=== PATIENT | male | born 1955 | race Caucasian/White ===

== ENCOUNTER 2024-05-13 01:06 | Observation (INO) ==
--- NOTE | 2024-05-13 01:13 | Emergency Department Note ---
Impression & Plan Acute non-ST elevation myocardial infarction (NSTEMI) admit to the [facility] ED Provider Note NAME: TALIB DE LEON AGE: 68 SEX: Male INFORMANT: Patient ED PROVIDER(S): Saab Onofre DO CHIEF COMPLAINT: chest pain PLAN: Disposition: admit to the [facility] MEDICAL DECISION MAKING: This is a 68-year-old male patient with a history of coronary artery disease and 2 stents previously placed 3 years ago who presents to the emergency department with chest discomfort that radiates to both arms and his jaw since earlier this afternoon. patient called EMS. They Administered nitroglycerin to the patient which relieved his chest discomfort. he arrived hemodynamically stable to the emergency department. Laboratory studies revealed no leukocytosis or anemia. Coagulation studies were normal. BUN was elevated 26 but creatinine was normal. Glucose was 109. However, the patient's troponin was elevated to 40.4. This was concerning for NSTEMI. Portable chest x-ray revealed mild pulmonary vascular congestion. The patient was bolused with IV heparin and started on a heparin drip. He remained chest pain-free while here in the emergency department. I discussed the case with the [facility] and they will evaluate for further inpatient care. Care/management discussed with: ready to wear department manager and [facility] Triage Nursing notes: reviewed and agree With them. Vital Signs: reviewed and remarkable for hypertension Prior/ Outside/ External records reviewed: I did look at a previous EKG and a primary care note from April 06. Differential Diagnosis: Aortic dissection, cardiac ischemia, STEMI, NSTEMI, angina Diagnostics, independently interpreted by me: ECG: normal sinus rhythm at a rate of 68 with PVCs. There is no ST segment elevation or signs of ischemia. This is unchanged from EKG on 04/06/2024 Cardiac Monitoring: normal sinus rhythm at a rate of 72 Imaging studies: portable chest x-ray: mild pulmonary vascular congestion As per my independent interpretation. HPI: 68 year old Male arrives for evaluation of Chest discomfort. patient describes developing chest discomfort earlier this afternoon. he became more concerned when the pain began to radiate into both arms and up into his jaw. Around 1030 this evening, he describes a tightness in his chest and a sharp pressure. He took 2 aspirin himself but could not get comfortable. He then developed nausea and called EMS. They Gave him additional 2 aspirin and a dose of nitroglycerin which did relieve the chest discomfort. PAST MEDICAL HISTORY: See Below, PAST SURGICAL HISTORY: See Below, SOCIAL HISTORY: See Below, HOME MEDICATIONS: See list ALLERGIES: none VITALS: See Below PHYSICAL EXAMINATION: HEENT: Head - normocephalic and atraumatic. Pupils are equal, round, and reactive to light. Extraocular eye muscles are intact, and sclera are anicteric. Nose - moist nasal mucosa without discharge. Mouth - moist buccal mucosa. Oropharynx is nonerythematous and there is no tonsillar exudate or edema noted. Neck: Supple; no JVD or cervical lymphadenopathy Heart: Regular rate and rhythm. There is a normal S1 and S2 with no murmurs, clicks, or gallops appreciated. Lungs: Clear to auscultation bilaterally with no wheezes, rales, or rhonchi. Abdomen: Soft, completely nontender, nondistended, with good bowel sounds. There are no palpable pulsatile masses or hepatosplenomegaly. There is no guarding, rigidity, or rebound noted. Extremities: No evidence of cyanosis, clubbing, or edema. There are easily palpable peripheral pulses. Skin: warm and dry with good turgor and no rashes. Emergency Department treatment: quality assurance monitor final, IV heparin bolus, IV heparin drip Emergency Department course: The patient was evaluated in room B-7. A complete history and physical was performed. Twelve-lead EKG was obtained as described above. An order was placed for continuous cardiac monitoring. Patient was in a normal sinus rhythm at a rate of 72. A portable chest x-ray was performed. Laboratory studies were drawn as above. Nursing staff hrme-tested the patient's stool which was negative. I reviewed the results of the labs with the patient. Patient was bolused with IV heparin and started on a heparin drip. I discussed the case with the [facility] Hospitalist. Past Med/Surg History Problem List (Updated 05/13/24 @ 05:28 by Saba Onofre DO) Acute non-ST elevation myocardial infarction (NSTEMI) (Acute) Chest pain CAD (coronary artery disease) Polymyalgia rheumatica on chronic prednisone therapy Bacterial sinusitis PAF (paroxysmal atrial fibrillation) Muscular aches Nocturnal hypoxemia Moderate obstructive sleep apnea Class 1 obesity with serious comorbidity and body mass index (BMI) of 34.0 to 34.9 in adult Snoring Atherosclerotic heart disease of [place] coronary artery with other forms of angina pectoris Atherogenic dyslipidemia Benign essential hypertension Medical History History of inferior wall myocardial infarction Insufficient sleep syndrome Hypersomnia Left shoulder pain Chronic knee pain Class 2 obesity due to excess calories with body mass index (BMI) of 38.0 to 38.9 in adult Abdominal pain COVID Nausea and vomiting after administration of anesthetic agent Surgical History History of heart artery stent History of removal of cyst off back History of arthroscopy of right shoulder History of arthroscopy of right knee x2 History of arthroscopy of left knee x2 History of repair of anterior cruciate ligament of left knee History of colonoscopy History of esophagogastroduodenoscopy (EGD) History of wisdom tooth extraction Status post correction of deviated nasal septum Status post myringotomy with tube placement of both ears Family History Grandmother (Paternal) Family history of diabetes mellitus Other No family history of adverse response to anesthesia Denies family history of Ovarian cancer Prostate cancer Myocardial infarction Breast cancer Colorectal cancer Social History Smoking Status: Never smoker Second Hand Exposure: Yes (father smoked); Do You Dip or Chew Tobacco: No; Hx Alcohol Use: Yes Alcohol type: beer Hx Substance Use: No Preferred Language: Turkmen Communication Ability: Effective Visual Impairment: No Limitations Hearing Ability: Normal Control And Recovery Special Tactics Required: No Beliefs That Will Affect Care: None marital status: Single Current Living Situation: Alone current occupational status: employed current occupation: Researcher Feels Safe at Home: Yes Diet: regular Dental Care, Regularly: Yes Physical Activity Frequency: 1-2 Times per Week Seatbelt Use: sometimes Sunscreen Use: No Assistive Devices: None Allergies Allergies Allergy/AdvReac Type Severity Reaction Status Date / Time No Known Allergies Allergy Verified 05/13/24 02:23 Home Meds Home Medications Medication Instructions Recorded Confirmed ibuprofen 200 mg tablet (Advil) 200 mg PO Q6H PRN Pain 03/06/23 05/13/24 aspirin 81 mg tablet,delayed 81 mg PO DIRECTED 09/25/23 05/13/24 release (Adult Low Dose Aspirin) acetaminophen 500 mg tablet 500 mg PO Q6H PRN Pain 05/13/24 05/13/24 (Tylenol Extra Strength) aspirin 325 mg tablet 325 mg PO DIRECTED PRN Pain 05/13/24 05/13/24 omeprazole 40 mg capsule,delayed 40 mg PO DAILY PRN WHEN TAKES 05/13/24 05/13/24 release PREDNISONE/UPSET STOMACH prednisone 5 mg tablet 15 mg PO DAILY 05/13/24 05/13/24 tirzepatide (weight loss) 15 15 mg subcut WK 05/13/24 05/13/24 mg/0.5 mL subcutaneous pen injector (Zepbound) Results & Data (ED) Vital Signs Vital Signs - 24 hr 05/13/24 00:55 05/13/24 00:55 05/13/24 01:13 Temperature 36.8 C Temperature Source Oral Pulse Rate 71 72 Pulse Rate [Apical] Pulse Rhythm Regular Pulse Rhythm [Apical] Pulse Strength Normal Pulse Strength [Apical] Respiratory Rate 19 Respiratory Effort / Characteristics Non-Labored Spontaneous Respiratory Depth Normal Respiratory Pattern Regular Blood Pressure 133/101 H Blood Pressure [Right Arm] Blood Pressure Mean 111 Blood Pressure Mean [Right Arm] Blood Pressure Position Sitting Blood Pressure Position [Right Arm] Pulse Oximetry 95 91 Oxygen Delivery Method Room Air Room Air Oxygen Flow Rate 0 Sepsis Recent Fever Within 48 Hours No Sepsis New/Unexplained Change in Mental Status N/A Sepsis Action Taken by Nursing No Action Required 05/13/24 01:38 05/13/24 03:00 Temperature Temperature Source Pulse Rate 72 Pulse Rate [Apical] 62 Pulse Rhythm Regular Pulse Rhythm [Apical] Regular Pulse Strength Pulse Strength [Apical] Normal Respiratory Rate 20 20 Respiratory Effort / Characteristics Non-Labored Spontaneous Respiratory Depth Normal Respiratory Pattern Regular Blood Pressure Blood Pressure [Right Arm] 146/106 H Blood Pressure Mean Blood Pressure Mean [Right Arm] 119 Blood Pressure Position Blood Pressure Position [Right Arm] Lying Pulse Oximetry 92 95 Oxygen Delivery Method Room Air Room Air Oxygen Flow Rate Sepsis Recent Fever Within 48 Hours Sepsis New/Unexplained Change in Mental Status Sepsis Action Taken by Nursing Laboratory Data 05/13/24 01:38 05/13/24 03:19 Lab Results 05/13/24 Range/Units 01:38 WBC 10.47 (4.8-10.8) K/ul RBC 5.29 (4.70-6.10) M/uL Hgb 15.4 (14.0-18.0) g/dl Hct 45.5 (42.0-52.0) % MCV 86.0 (80.0-100.0) fL MCH 29.1 (25.0-34.0) pg MCHC 33.8 (32.0-36.0) g/dL RDW Std Deviation 43.7 (36.4-46.3) fL RDW Coeff of [place] 13.9 (11.5-14.5) % Plt Count 226 (130-400) K/uL MPV 10.3 (9.4-12.4) fL Immature Gran % (Auto) 1.1 % Neut % (Auto) 64.9 % Lymph % (Auto) 24.6 % [place] % (Auto) 7.2 % Eos % (Auto) 1.8 % Baso % (Auto) 0.4 % Neut # (Auto) 6.80 H (1.40-6.50) K/uL Lymph # (Auto) 2.58 (1.20-3.40) K/uL [place] # (Auto) 0.75 H (0.11-0.59) K/uL Eos # (Auto) 0.19 (0.00-0.50) K/uL Baso # (Auto) 0.04 (0.00-0.20) K/uL Immature Gran # (Auto) 0.11 (0.01-0.20) K/uL Sodium 138 (136-145) mmol/L Potassium TNP Chloride 106 (98-107) mmol/L Carbon Dioxide 25 (21-32) mmol/L Anion Gap 7 (3-11) BUN 26 H (6-23) mg/dl Creatinine 0.81 (0.6-1.4) mg/dl Est Cr Clr Drug Dosing 110.0 ml/min eGFR 95.44 BUN/Creatinine Ratio 32.1 H (10-20) Glucose 109 H (70-99(Fasting)) mg/dl Calcium 9.3 (8.6-10.3) mg/dl Total Bilirubin 0.4 (0.2-1.0) mg/dl AST TNP ALT 16 (7-52) U/L Alkaline Phosphatase 65 (34-104) U/L Troponin I High Sens 40.4 H (0-20) pg/ml Total Protein 6.7 (6.0-8.3) gm/dl Albumin 4.1 (3.4-5.0) gm/dl Globulin 2.6 (2.5-4.0) gm/dl Albumin/Globulin Ratio 1.6 (0.9-2) Lipase 59 (11-82) U/L Administered Medications Heparin Sodium/Dextrose (Heparin 14107 Unit/500 Ml D5w) 25,000 units in 500 mls @ 33 mls/hr IV .[id number] BELEN; Protocol Stop: 06/12/24 03:29 Last Admin: 05/13/24 04:06 Dose: 1,650 units/hr, 33 mls/hr Documented By: KIARA Co-signed By: ASHOK Discontinued Medications Heparin Sodium (Porcine) (Heparin Sod (Porcine) 1000 Unit/Ml) 1 units IV NOW ONE Stop: 05/13/24 03:20 Last Admin: 05/13/24 04:05 Dose: 7,000 units Documented By: KIARA Co-signed By: ASHOK Heparin Sodium/Dextrose (Heparin Iv Adult Wt-Based Standard W/ Initial Bolus Protocol) 1 each IV NOW STA; Protocol Stop: 05/13/24 03:05 Last Admin: 05/13/24 04:07 Dose: Not Given Documented By: KIARA Imaging Data Radiologist's Impression: Chest X-Ray 05/13/24 01:38 EXAM: XR chest 1V portable CLINICAL HISTORY: Chest pain, nonspecific TECHNIQUE: An X-ray image of the chest is obtained in AP projection. COMPARISON: 12/16/2020 CR. FINDINGS: Pulmonary Parenchyma: Prominent central bronchovascular markings could be due to pulmonary congestion. Linear opacities in the left lower zone, are likely atelectatic. No evidence of pleural effusion or thickening. Heart and Mediastinum: Cardiomegaly. Prominent aortic knuckle. No mediastinal masses. Bony Thorax: Mild degenerative changes of the visualized skeleton. Soft Tissues: Soft tissues overlying the chest wall are unremarkable. Mild apparent soft tissue thickening at the left supraclavicular area could be an external artifact. IMPRESSION: 1. Left lower zone linear opacities could be atelectatic or related to the prominent bronchovascular markings. Clinical correlation is advised. 2. The prominence of perihilar broncho-vascular markings is probably due to pulmonary vascular congestion. (increased). 3. No other significant interval change since the previous study. Electronically signed by Mario Hernandez 05-13-2024 03:04 AM Discharge Plan Visit Data Chief Complaint: Cardiac Assessment Stated Complaint: CHEST PAIN, RADIATES INTO JAW AND NECK ED Provider: Saba Onofre Discharge Problem: Acute non-ST elevation myocardial infarction (NSTEMI) Patient Disposition: Admitted As Inpatient Discharge Instructions Interventions: ED Discharge Assessment Last Done: 05/13/24 04:15
[2024-05-13 01:52] LABS: Basophils # (auto) 0.04 K/uL (0.00-0.20); Basophils % (auto) 0.4 %; Eosinophils # (auto) 0.19 K/uL (0.00-0.50); Eosinophils % (auto) 1.8 %; Hematocrit (blood only) 45.5 % (42.0-52.0); Hemoglobin 15.4 g/dl (14.0-18.0); Immature Granulocytes # (auto) 0.11 K/uL (0.01-0.20); Immature Granulocytes % (auto) 1.1 %; Lymphocytes # (auto) 2.58 K/uL (1.20-3.40); Lymphocytes % (auto) 24.6 %; Mean Corpuscular Hemoglobin 29.1 pg (25.0-34.0); Mean Corpuscular Hgb Conc 33.8 g/dL (32.0-36.0); Mean Platelet Volume 10.3 fL (9.4-12.4); Monocytes # (auto) 0.75 K/uL (0.11-0.59); Monocytes % (auto) 7.2 %; Neutrophils % (auto) 64.9 %; Platelet Count 226 K/uL (130-400); RDW Coefficient of Variation 13.9 % (11.5-14.5); RDW Standard Deviation 43.7 fL (36.4-46.3); Red Blood Count 5.29 M/uL (4.70-6.10); White Blood Count 10.47 K/ul (4.8-10.8)
[2024-05-13 02:32] LABS: Alanine Aminotransferase 16 U/L (7-52); Albumin Globulin Ratio 1.6 (0.9-2); Albumin Level 4.1 gm/dl (3.4-5.0); Alkaline Phosphatase 65 U/L (34-104); Anion Gap 7 (3-11); BUN Creatinine Ratio 32.1 (10-20); Bilirubin,Total 0.4 mg/dl (0.2-1.0); Blood Urea Nitrogen 26 mg/dl (6-23); Calcium 9.3 mg/dl (8.6-10.3); Carbon Dioxide 25 mmol/L (21-32); Chloride 106 mmol/L (98-107); Globulin 2.6 gm/dl (2.5-4.0); Glucose 109 mg/dl (70-99(Fasting)); Lipase 59 U/L (11-82); Sodium 138 mmol/L (136-145); Total Protein 6.7 gm/dl (6.0-8.3); Troponin I High Sensitivity 40.4 pg/ml (0-20)
--- NOTE | 2024-05-13 03:04 | XRay Report ---
EXAM: XR chest 1V portable CLINICAL HISTORY: Chest pain, nonspecific TECHNIQUE: An X-ray image of the chest is obtained in AP projection. COMPARISON: 12/16/2020 CR. FINDINGS: Pulmonary Parenchyma: Prominent central bronchovascular markings could be due to pulmonary congestion. Linear opacities in the left lower zone, are likely atelectatic. No evidence of pleural effusion or thickening. Heart and Mediastinum: Cardiomegaly. Prominent aortic knuckle. No mediastinal masses. Bony Thorax: Mild degenerative changes of the visualized skeleton. Soft Tissues: Soft tissues overlying the chest wall are unremarkable. Mild apparent soft tissue thickening at the left supraclavicular area could be an external artifact. IMPRESSION: 1. Left lower zone linear opacities could be atelectatic or related to the prominent bronchovascular markings. Clinical correlation is advised. 2. The prominence of perihilar broncho-vascular markings is probably due to pulmonary vascular congestion. (increased). 3. No other significant interval change since the previous study. Electronically signed by Mario Hernandez 05-13-2024 03:04 AM
--- NOTE | 2024-05-13 03:13 | History & Physical Report ---
Date of Service May 13, 2024 Assessment & Plan (1) Chest pain: (2) CAD (coronary artery disease): (3) PAF (paroxysmal atrial fibrillation): (4) Polymyalgia rheumatica: (5) Benign essential hypertension: Plan 68yo male with history of CAD s/p VT with stent placement to the LAD in January 2022, PAF and PMR on Prednisone therapy presenting with chest pain ongoing throughout the day with acute worsening around 22:30 today. EKG with no acute ischemic changes. Troponin x 1 was elevated at 40.4 - repeat is pending #Chest pain- concern for possible ACS -Observation to medical with telemetry -Trend troponin -Continue heparin gtt initiated in the ER -Continue ASA - will increase to 81mg po DAILY -Patient does not take a statin or BB at this time -Cardiology consultation appreciated #CAD -Continue ASA -Trend troponin -Cardiology consultation #PAF - patient with low atrial fibrillation burden. Has discussed management with Cardiology including possible Watchman procedure. At this time patient remains off any rate/rhythm controlling agents and off anticoagulation -Telemetry monitoring #PMR - chronic, stable -Continue Predisone at home dose of 15mg po daily #Hypertension - blood pressure controlled at home. Patient is not currently on any medications -Monitor History of Present Illness Chief Complaint: chest pain Primary Care Provider: Ham Hernandez DO Nirmal Waller is a pleasant 68yo male with history of HTN, HLP, PAF, RITA and CAD s/p VT with stent placement to LAD in January 2022 presenting with chest pain. Patient reports having substernal chest discomfort mild in nature throughout the day. Around 22:30 the discomfort became more intense with radiation to bilateral arms a well as his jaw. He had some nausea as well. Denies SOB, palpitations, dizziness or syncope. Patient took ASA x 2 prior to arrival - was given additional ASA and Nitro by EMS which improved his pain. Patient reports now just with some mild discomfort in his jaw. 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 Does not have Nitro at home In the ER patient is afebrile, HD stable Allergies Allergy/AdvReac Type Severity Reaction Status Date / Time No Known Allergies Allergy Verified 05/13/24 02:23 Home Medications Medication Instructions Recorded Confirmed Type ibuprofen 200 mg tablet (Advil) 200 mg PO Q6H PRN Pain 03/06/23 05/13/24 History aspirin 81 mg tablet,delayed 81 mg PO DIRECTED 09/25/23 05/13/24 History release (Adult Low Dose Aspirin) acetaminophen 500 mg tablet 500 mg PO Q6H PRN Pain 05/13/24 05/13/24 History (Tylenol Extra Strength) aspirin 325 mg tablet 325 mg PO DIRECTED PRN Pain 05/13/24 05/13/24 History omeprazole 40 mg capsule,delayed 40 mg PO DAILY PRN WHEN TAKES 05/13/24 05/13/24 History release PREDNISONE/UPSET STOMACH prednisone 5 mg tablet 15 mg PO DAILY 05/13/24 05/13/24 History tirzepatide (weight loss) 15 15 mg subcut WK 05/13/24 05/13/24 History mg/0.5 mL subcutaneous pen injector (Zepbound) Past Med/Surg History Problem List (Updated 05/13/24 @ 03:49 by Tila Franklin DO) Chest pain CAD (coronary artery disease) Polymyalgia rheumatica on chronic prednisone therapy Bacterial sinusitis PAF (paroxysmal atrial fibrillation) Muscular aches Nocturnal hypoxemia Moderate obstructive sleep apnea Class 1 obesity with serious comorbidity and body mass index (BMI) of 34.0 to 34.9 in adult Snoring Atherosclerotic heart disease of [place] coronary artery with other forms of angina pectoris Atherogenic dyslipidemia Benign essential hypertension Medical History History of inferior wall myocardial infarction Insufficient sleep syndrome Hypersomnia Left shoulder pain Chronic knee pain Class 2 obesity due to excess calories with body mass index (BMI) of 38.0 to 38. 9 in adult Abdominal pain COVID Nausea and vomiting after administration of anesthetic agent Surgical History History of heart artery stent History of removal of cyst off back History of arthroscopy of right shoulder History of arthroscopy of right knee x2 History of arthroscopy of left knee x2 History of repair of anterior cruciate ligament of left knee History of colonoscopy History of esophagogastroduodenoscopy (EGD) History of wisdom tooth extraction Status post correction of deviated nasal septum Status post myringotomy with tube placement of both ears Family History Grandmother (Paternal) Family history of diabetes mellitus Other No family history of adverse response to anesthesia Denies family history of Ovarian cancer Prostate cancer Myocardial infarction Breast cancer Colorectal cancer Social History Smoking Status: Never smoker Second Hand Exposure: Yes (father smoked); Do You Dip or Chew Tobacco: No; Hx Alcohol Use: Yes Alcohol type: beer Hx Substance Use: No Preferred Language: Vietnamese Communication Ability: Effective Visual Impairment: No Limitations Hearing Ability: Normal Parts Cataloguer Required: No Beliefs That Will Affect Care: None marital status: Single Current Living Situation: Alone current occupational status: employed current occupation: Researcher Feels Safe at Home: Yes Diet: regular Dental Care, Regularly: Yes Physical Activity Frequency: 1-2 Times per Week Seatbelt Use: sometimes Sunscreen Use: No Assistive Devices: None Review of Systems Review of Systems: All systems reviewed & are unremarkable except as noted in HPI & below Physical Exam Physical Exam: General: patient resting comfortably, NAD, non-toxic in appearance, AA&O x 4 Skin: warm, dry, intact, no rashes or lesions HEENT: NC/AT, PERRL, EOMI, anicteric sclera, conjunctiva without injection, external ear normal to inspection and nontender, nares patent, moist mucus membranes, dentition intact, no oropharyngeal lesions, neck supple, trachea midline, no LAD, no thyromegaly, no JVD Heart: +S1/S2, regular, no m/r/g Lungs: equal air entry bilaterally, no rales/rhonchi/wheezes Abd: +BS, soft, NT/ND, no masses/organomegaly/ascites Ext: warm, 2+ pulses in UE/LE bilaterally, no clubbing/cyanosis or edema Neuro: nonfocal, patient AA&O x 4, speech intact, no facial droop, moving all extremities on command with equal strength 5/5 Results & Data Results & Data Vital Signs (Past 12 Hours) Vital Signs Temp Pulse Pulse Resp BP BP Pulse Ox 05/13/24 03:00 62 20 146/106 H 95 05/13/24 01:38 72 20 92 05/13/24 01:13 72 05/13/24 00:55 91 05/13/24 00:55 36.8 C 71 19 133/101 H 95 O2 Del Method O2 Flow Rate 05/13/24 03:00 Room Air 05/13/24 01:38 Room Air 05/13/24 01:13 05/13/24 00:55 Room Air 0 05/13/24 00:55 Room Air Laboratory Results Laboratory Results WBC 10.47 K/ul (4.8-10.8) 05/13/24 01:38 RBC 5.29 M/uL (4.70-6.10) 05/13/24 01:38 Hgb 15.4 g/dl (14.0-18.0) 05/13/24 01:38 Hct 45.5 % (42.0-52.0) 05/13/24 01:38 MCV 86.0 fL (80.0-100.0) 05/13/24 01:38 MCH 29.1 pg (25.0-34.0) 05/13/24 01:38 MCHC 33.8 g/dL (32.0-36.0) 05/13/24 01:38 RDW Std Deviation 43.7 fL (36.4-46.3) 05/13/24 01:38 RDW Coeff of [place] 13.9 % (11.5-14.5) 05/13/24 01:38 Plt Count 226 K/uL (130-400) 05/13/24 01:38 MPV 10.3 fL (9.4-12.4) 05/13/24 01:38 Immature Gran % (Auto) 1.1 % 05/13/24 01:38 Neut % (Auto) 64.9 % 05/13/24 01:38 Lymph % (Auto) 24.6 % 05/13/24 01:38 [place] % (Auto) 7.2 % 05/13/24 01:38 Eos % (Auto) 1.8 % 05/13/24 01:38 Baso % (Auto) 0.4 % 05/13/24 01:38 Neut # (Auto) 6.80 K/uL (1.40-6.50) H 05/13/24 01:38 Lymph # (Auto) 2.58 K/uL (1.20-3.40) 05/13/24 01:38 [place] # (Auto) 0.75 K/uL (0.11-0.59) H 05/13/24 01:38 Eos # (Auto) 0.19 K/uL (0.00-0.50) 05/13/24 01:38 Baso # (Auto) 0.04 K/uL (0.00-0.20) 05/13/24 01:38 Immature Gran # (Auto) 0.11 K/uL (0.01-0.20) 05/13/24 01:38 Sodium 138 mmol/L (136-145) 05/13/24 01:38 Potassium TNP 05/13/24 01:38 Chloride 106 mmol/L (98-107) 05/13/24 01:38 Carbon Dioxide 25 mmol/L (21-32) 05/13/24 01:38 Anion Gap 7 (3-11) 05/13/24 01:38 BUN 26 mg/dl (6-23) H 05/13/24 01:38 Creatinine 0.81 mg/dl (0.6-1.4) 05/13/24 01:38 Est Cr Clr Drug Dosing 110.0 ml/min 05/13/24 01:38 eGFR 95.44 05/13/24 01:38 BUN/Creatinine Ratio 32.1 (10-20) H 05/13/24 01:38 Glucose 109 mg/dl (70-99(Fasting)) H 05/13/24 01:38 Calcium 9.3 mg/dl (8.6-10.3) 05/13/24 01:38 Total Bilirubin 0.4 mg/dl (0.2-1.0) 05/13/24 01:38 AST TNP 05/13/24 01:38 ALT 16 U/L (7-52) 05/13/24 01:38 Alkaline Phosphatase 65 U/L (34-104) 05/13/24 01:38 Troponin I High Sens 40.4 pg/ml (0-20) H 05/13/24 01:38 Total Protein 6.7 gm/dl (6.0-8.3) 05/13/24 01:38 Albumin 4.1 gm/dl (3.4-5.0) 05/13/24 01:38 Globulin 2.6 gm/dl (2.5-4.0) 05/13/24 01:38 Albumin/Globulin Ratio 1.6 (0.9-2) 05/13/24 01:38 Lipase 59 U/L (11-82) 05/13/24 01:38 Impressions Chest X-Ray 05/13/24 01:38 EXAM: XR chest 1V portable CLINICAL HISTORY: Chest pain, nonspecific TECHNIQUE: An X-ray image of the chest is obtained in AP projection. COMPARISON: 12/16/2020 CR. FINDINGS: Pulmonary Parenchyma: Prominent central bronchovascular markings could be due to pulmonary congestion. Linear opacities in the left lower zone, are likely atelectatic. No evidence of pleural effusion or thickening. Heart and Mediastinum: Cardiomegaly. Prominent aortic knuckle. No mediastinal masses. Bony Thorax: Mild degenerative changes of the visualized skeleton. Soft Tissues: Soft tissues overlying the chest wall are unremarkable. Mild apparent soft tissue thickening at the left supraclavicular area could be an external artifact. IMPRESSION: 1. Left lower zone linear opacities could be atelectatic or related to the prominent bronchovascular markings. Clinical correlation is advised. 2. The prominence of perihilar broncho-vascular markings is probably due to pulmonary vascular congestion. (increased). 3. No other significant interval change since the previous study. Electronically signed by Mario Hernandez 05-13-2024 03:04 AM ECG Additional Comments: EKG with SR at 68bpm with PVCs, no acute ischemic changes PG Care Time/CCT Total # of Minutes Spent Total Time Spent with Patient: Total time spent is greater than 50% in coordination of care (as documented) at patient's floor/unit and/or counseling patient: Coding Level of Care Code 11064 INT INP/OBS CARE 3/75MIN Diagnoses Chest pain R07.9 CAD (coronary artery disease) I25.10 PAF (paroxysmal atrial fibrillation) I48.0 Polymyalgia rheumatica M35.3 Benign essential hypertension I10
[2024-05-13 03:49] LABS: Potassium 4.3 mmol/L (3.5-5.1)
[2024-05-13 03:54] LABS: Troponin I High Sensitivity 31.7 pg/ml (0-20)
[2024-05-13 03:56] LABS: INR 1.1 (0.9-1.1); Partial Thromboplastin Time 26 Seconds (21-31); Prothrombin Time 11.4 Seconds (9.0-12.0)
[2024-05-13] MEDS: HEPARIN SOD (PORCINE) 1000 UNIT/ML IV ONE (04:05)
[2024-05-13] MEDS: HEPARIN 25000 UNIT/500 ML D5W 25,000 UNITS/500 ML BAG IV SCH (04:06)
[2024-05-13] MEDS: Heparin IV Adult Wt-Based Standard w/ INITIAL Bolus Protocol IV STA (04:07)
[2024-05-13] MEDS ORDERED: ACETAMINOPHEN 500 MG TAB PO PRN (04:49)
[2024-05-13] MEDS ORDERED: ONDANSETRON INJ 2 MG/ML 2 ML VIAL IV PRN (04:49)
[2024-05-13 06:28] LABS: Magnesium 2.2 mg/dl (1.7-2.4)
[2024-05-13] MEDS: ASPIRIN 81 MG ECTAB PO SCH (07:47)
--- NOTE | 2024-05-13 07:47 | Hospitalist Progress Note ---
Date of Service May 13, 2024 Assessment & Plan (1) Chest pain: (2) CAD (coronary artery disease): (3) PAF (paroxysmal atrial fibrillation): (4) Polymyalgia rheumatica: (5) Benign essential hypertension: Plan 68yo male with history of CAD s/p [place] with stent placement to the LAD in January 2022, PAF and PMR on Prednisone therapy presenting with chest pain ongoing throughout the day with acute worsening around 22:30 today. EKG with no acute ischemic changes. Troponin x 1 was elevated at 40.4 - repeat is pending Patient took ASA x 2 prior to arrival - was given additional ASA and Nitro by EMS which improved his pain. On admission, patient reported now just with some mild discomfort in his jaw. #Chest pain- concern for possible ACS -Observation to medical with telemetry -Trend troponin -Continue heparin gtt initiated in the ER -Continue ASA - will increase to 81mg po DAILY -Patient does not take a statin or BB at this time -Cardiology consultation appreciated Troponin 31--> 29 on repeat ECHO ordered/pending Cardiology consult pending PCP note 03/05 with patient stoping his statin due to unpleasant side effects Also notes omeprazole rx for hx of stomach bleeding. Hgb stble 15.4 from 15.8 on heparin gtt -->Home meds list with aspirin, prednisone, ibuprofen. ?2nd to reflux. On omeprazole NEEDED, will schedule H2 BID, PPI once daily while NPO BRIDGE NOTE: ADMITTED AFTER MIDNIGHT Seen in 281, no further symptoms. Reports similar symptoms in past with reflux but not as bad but his radiation of symptoms was what was concerning but also thinks has issue w/ bottom right tooth and waiting to get into the dentist. Takes aspirin every other day, rec every day. Also since on steroids, inquired about PPI use and not daily but encouraged should be. As long as ECHO ok, repeat troonin down will plan for dc and f/u cards in 1-[address] Thompson. #CAD -Continue ASA -Trend troponin -Cardiology consultation #PAF - patient with low atrial fibrillation burden. Has discussed management with Cardiology including possible Watchman procedure. At this time patient remains off any rate/rhythm controlling agents and off anticoagulation -Telemetry monitoring Also untx RITA, mag/k stable #PMR - chronic, stable -Continue Predisone at home dose of 15mg po daily #Hypertension - blood pressure controlled at home. Patient is not currently on any medications -Monitor Admission and Anticipated Discharge Date Admission Date: May 13, 2024 Subjective BRIDGE NOTE: ADMITTED AFTER MIDNIGHT Seen in 281, no further symptoms. Reports similar symptoms in past with reflux but not as bad but his radiation of symptoms was what was concerning but also thinks has issue w/ bottom right tooth and waiting to get into the dentist. Takes aspirin every other day, rec every day. Also since on steroids, inquired about PPI use and not daily but encouraged should be. As long as ECHO ok, repeat troonin down will plan for dc and f/u cards in 1-[address] Thompson. Results & Data Results & Data Vital Signs (Past 12 Hours) Vital Signs Temp Pulse Pulse Resp BP BP Pulse Ox 05/13/24 07:27 36.4 C L 68 16 144/87 H 96 05/13/24 06:58 70 05/13/24 04:50 61 05/13/24 04:43 36.4 C L 71 16 143/89 H 93 05/13/24 04:00 71 20 133/84 93 05/13/24 03:00 62 20 146/106 H 95 05/13/24 01:38 72 20 92 05/13/24 01:13 72 05/13/24 00:55 91 05/13/24 00:55 36.8 C 71 19 133/101 H 95 O2 Del Method O2 Flow Rate 05/13/24 07:27 Room Air 05/13/24 06:58 05/13/24 04:50 05/13/24 04:43 Room Air 05/13/24 04:00 Room Air 05/13/24 03:00 Room Air 05/13/24 01:38 Room Air 05/13/24 01:13 05/13/24 00:55 Room Air 0 05/13/24 00:55 Room Air PG Care Time/CCT Total # of Minutes Spent Total Time Spent with Patient: Total time spent is greater than 50% in coordination of care (as documented) at patient's floor/unit and/or counseling patient: Coding Diagnoses Chest pain R07.9 CAD (coronary artery disease) I25.10 PAF (paroxysmal atrial fibrillation) I48.0 Polymyalgia rheumatica M35.3 Benign essential hypertension I10
[2024-05-13] MEDS: predniSONE 5 MG TAB PO SCH (07:48)
[2024-05-13] MEDS: FAMOTIDINE 20MG IV PUSH 20 MG/5 ML SYR IV SCH (10:00)
[2024-05-13] MEDS: PANTOprazole 40 MG/10 ML SYR IV SCH (10:00)
--- NOTE | 2024-05-13 10:55 | Discharge Summary ---
Discharge Summary Date of Service May 13, 2024 Principal Dx & Hospital Course #1 = Principal Diagnosis (1) Chest pain: (2) CAD (coronary artery disease): (3) PAF (paroxysmal atrial fibrillation): (4) Polymyalgia rheumatica: (5) Benign essential hypertension: Plan 68yo male with history of CAD s/p [place] with stent placement to the LAD in January 2022, PAF and PMR on Prednisone therapy presenting with chest pain ongoing throu ghout the day with acute worsening around 22:30. EKG with no acute ischemic changes however initial troponin elevated to 40.4. Reported similar symptoms in past with reflux but not as bad but his radiation of symptoms was what was concerning but also thinks has issue w/ bottom right tooth and waiting to get into the dentist. Patient took ASA 81mg x 2 prior to arrival and was given additional ASA and Nitro by EMS which improved pain and on admission just had some mild discomfort of the jaw. Placed on heparin gtt and telemetry monitoring with NSR w/ PACs. No further CP and was given PPI/H2 as with recent PMR/prednisone use and aspirin suspect underlying reflux (he endorsed issues with this as well and was not taking PPI daily) Troponin trended down 40.4--> 31.7--> 29--> 22.3 Cardiology consulted, discussed with Dr Thompson. ECHO without change to EF/wma, unlikely ACS. Did note now mild-mod MR/TR but EF 55-60%. Per Dr Tolentino, can discharge and f/u with him in 1-3 weeks outpatient. Discussed with patient his statin use as prior intolerance reported but since starting prednisone for his PMR has been taking q2-3 days and rec to increase for prevention. Also rec to increase aspirin to daily and to continue his PPI with omeprazole DAILY SCHEDULED. Patient anxious for discharge and was able to be arranged. Encourage low salt diet, BP monitoring and close follow up with PCP and cardiology at discharge. Warning signs to return were discussed #CAD s/p PCI in the past and aspirin as above rec to continue once daily along with increased compliance with statin therapy. Cardiology consulted/discussed and ECHO w/o wma and remained NSR on telemetry with stable K/Mag #PAF - patient with low atrial fibrillation burden. Has discussed management with [facility] rdiology including possible Watchman procedure. At this time patient remains off any rate/rhythm controlling agents and off anticoagulation - Rec f/u discussion about tx RITA. Mag/K stable and no afib on monitor. Daily ASA at dc rec #PMR - chronic, stable -Continue Prednisone at home dose of 15mg po daily which takes 5mg TID and was adjusted. Rec to f/u discussion PCP and titrate to lowest effective dose #Hypertension - blood pressure controlled at home. Patient is not currently on any medications and stable in hospital setting but should monitor at home. Low salt diet encouraged Notes For Next Care Provider Rec daily aspirin Rec having PPI once daily SCHEDULED, consider BID if needed for ongoing steroid/aspirin use F/u Cards 1-3 weeks Monitor BP in follow up and consider restarting HTN medication if elevated Patient has been taking statin q2-3 days and rec increasing as tolerating w/ improvement in sx since being on prednisone for PMR -- monitor to decrease dosing as able in f/u to prevent worsening reflux sxs Consider holter monitor vs referral for watchman procedure as discussed with cardiology in the past given his LA dilation. Medication Changes From Visit Aspirin to every day PPI to every day Statin increased to daily vs q2d recommended Admission HPI Per Admitting Provider Nirmal Waller is a pleasant 68yo male with history of HTN, HLP, PAF, RITA and CAD s/p [place] with stent placement to LAD in January 2022 presenting with chest pain. Patient reports having substernal chest discomfort mild in nature throughout the day. Around 22:30 the discomfort became more intense with radiation to bilateral arms a well as his jaw. He had some nausea as well. Denies SOB, palpitations, dizziness or syncope. Patient took ASA x 2 prior to arrival - was given additional ASA and Nitro by EMS which improved his pain. Patient reports now just with some mild discomfort in his jaw. 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 Does not have Nitro at home In the ER patient is afebrile, HD stable Admission Exam Per Admitting Provider General: patient resting comfortably, NAD, non-toxic in appearance, AA&O x 4 Skin: warm, dry, intact, no rashes or lesions HEENT: NC/AT, PERRL, EOMI, anicteric sclera, conjunctiva without injection, external ear normal to inspection and nontender, nares patent, moist mucus membranes, dentition intact, no oropharyngeal lesions, neck supple, trachea midline, no LAD, no thyromegaly, no JVD Heart: +S1/S2, regular, no m/r/g Lungs: equal air entry bilaterally, no rales/rhonchi/wheezes Abd: +BS, soft, NT/ND, no masses/organomegaly/ascites Ext: warm, 2+ pulses in UE/LE bilaterally, no clubbing/cyanosis or edema Neuro: nonfocal, patient AA&O x 4, speech intact, no facial droop, moving all extremities on command with equal strength 5/5 Discharge Exam General: 68 yo male sitting up in bed, NAD, anxious for discharge Heent; head atraumatic, +facial hair, +thick neck, mmm Resp: even/unlabored, no wheezing/rales, on room air CV: NSR on telemetry, faint systolic murmur but no pitting edema or calf tenderness GI: +BS, soft/NT MSK/Neuro: nonfocal, moves all extremities, not confused, answering questions appropriately Psych: AOx3, cooperative with exam Discharge Plan Discharge Items Patient Disposition: Home - Self-Care Reason For Visit: CHEST PAIN Discharge Diagnosis: Chest pain, possible reflux Goals: You have been hospitalized for an acute medical problem. During your stay at [facility], we have made an effort to correct the problem that brought you to the hospital while keeping you as comfortable as possible. Medications were used to bring your condition under control and your discharge instructions will include directions for any medications you should take after leaving the hospital. Please make sure you see your Primary Care Provider as part of your follow up plan. Activity: As commented below Non-emergency contact: Primary Care Provider and Attendance Clerk Call non-emergency contact if: you have any medication questions, your symptoms worsen, your pain is not controlled, your pain is unusual for you and you have a fever Follow-up/Referrals: Fuad Thompson MD, PhD [Physician] - 05/20/24 1:00 pm () Ham Hernandez DO [Primary Care Provider] - 05/19/24 1:00 pm Diet: Heart Healthy Addtl Attending Provider Instructions: You have been hospitalized for chest pain. Troponin was minimally elevated and decreased on repeat testing and almost completely normalized. ECHO (ultrasound of the heart) was read by Dr Thompson and pumping function has not changed and no wall motion abnormalities to suggest cardiac etiology. As discussed, would recommend taking your OMEPRAZOLE EVERY day as well as your aspirin and increase your statin for cholesterol as able. Please follow up with Dr Thompson in 1-3 weeks as discussed. Should discuss with Dr Hernandez/primary care about decreasing prednisone dosing in follow up to lowest effective dose to prevent worsening reflux. Return to ER with any increased chest pain, shortness of breath or for any other symptoms concerning for you. Please follow up primary care in 7-10 days. It has been a pleasure being a part of the medical team providing for you while you have been in the hospital. Take care! Pending Studies at Discharge: No Stand-Alone Forms: My [facility] [place], Smoking Cessation Medications and DC Order Prescriptions: Continued ibuprofen [Advil] 200 mg tablet 200 mg PO Q6H PRN (Reason: Pain) aspirin 325 mg Tablet 325 mg PO DIRECTED PRN (Reason: Pain) acetaminophen [Tylenol Extra Strength] 500 mg Tablet 500 mg PO Q6H PRN (Reason: Pain) prednisone 5 mg tablet 15 mg PO DAILY Zepbound 15 mg/0.5 mL pen injector 15 mg subcut WK Rx Instructions: TUESDAYS omeprazole 40 mg capsule,delayed release(DR/EC) 40 mg PO DAILY Qty: 0 0RF Rx Instructions: take 30 minutes prior to food once a day while on Prednisone Changed aspirin [Adult Low Dose Aspirin] 81 mg tablet,delayed release (DR/EC) 81 mg PO DAILY Qty: 0 0RF Rx Instructions: PER PT "WHEN I NEED IT". Discharge Orders: Discharge Order (Routine); Ordered 05/13/24 Ordered By: Maryann Duran Admission Data Admit Date/Time: 05/13/24 03:13 Attending Provider: Musa Esquivel Admit Provider: Tila Franklin Primary Care Provider: Ham Hernandez Other Providers: Desi Musa; Tila Franklin Other Interventions: Discharge Summary Assessment (RN) Last Done: 05/13/24 11:09 Hospital Stay Data Consultations 05/13/24 03:13 ED Decision to Admit Stat 05/13/24 03:13 Consult Cardiology Routine Diagnostic Imagining Performed Chest X-Ray 05/13/24 01:38 EXAM: XR chest 1V portable CLINICAL HISTORY: Chest pain, nonspecific TECHNIQUE: An X-ray image of the chest is obtained in AP projection. COMPARISON: 12/16/2020 CR. FINDINGS: Pulmonary Parenchyma: Prominent central bronchovascular markings could be due to pulmonary congestion. Linear opacities in the left lower zone, are likely atelectatic. No evidence of pleural effusion or thickening. Heart and Mediastinum: Cardiomegaly. Prominent aortic knuckle. No mediastinal masses. Bony Thorax: Mild degenerative changes of the visualized skeleton. Soft Tissues: Soft tissues overlying the chest wall are unremarkable. Mild apparent soft tissue thickening at the left supraclavicular area could be an external artifact. IMPRESSION: 1. Left lower zone linear opacities could be atelectatic or related to the prominent bronchovascular markings. Clinical correlation is advised. 2. The prominence of perihilar broncho-vascular markings is probably due to pulmonary vascular congestion. (increased). 3. No other significant interval change since the previous study. Electronically signed by Mario Hernandez 05-13-2024 03:04 AM ECHOCARDIOGRAM Compared to prior study, changes are noted. The study was technically adequate. Compared to prior study there is now visualized mild-moderate MR and TR. The left atrium now is severely dilated. Normal LV size and systolic function. Mild LVH. Normal RV size and function. Discharge Instructions Given to Patient (Per Discharging Provider) You have been hospitalized for chest pain. Troponin was minimally elevated and decreased on repeat testing and almost completely normalized. ECHO (ultrasound of the heart) was read by Dr Thompson and pumping function has not changed and no wall motion abnormalities to suggest cardiac etiology. As discussed, would recommend taking your OMEPRAZOLE EVERY day as well as your aspirin and increase your statin for cholesterol as able. Please follow up with Dr Thompson in 1-3 weeks as discussed. Should discuss with Dr Hernandez/primary care about decreasing prednisone dosing in follow up to lowest effective dose to prevent worsening reflux. Return to ER with any increased chest pain, shortness of breath or for any other symptoms concerning for you. Please follow up primary care in 7-10 days. It has been a pleasure being a part of the medical team providing for you while you have been in the hospital. Take care! Supervising Physician Co-Signing Physician Notes The patient was not seen by me. The chart was reviewed. Case discussed with CHRISTY Grimaldo. Agree with assessment and plan Total Time Total Time Spent Total Time Spent (In Minutes): 45 Coding Level of Care Code 78545 INP/OBS DISCH >30 MIN Diagnoses Chest pain R07.9 CAD (coronary artery disease) I25.10 PAF (paroxysmal atrial fibrillation) I48.0 Polymyalgia rheumatica M35.3 Benign essential hypertension I10
[2024-05-13 11:01] VITALS: PULSE 74; RESP 14; TEMP 97.3; O2SAT 97
--- NOTE | 2024-05-13 11:02 | XCELERA ---
[id number]
[2024-05-13 11:24] LABS: ANTI-Xa, UFH(UnfractionatedHep 0.82 IU/ml (0.3-0.7)
[2024-05-13 12:04] VITALS: BP 148/90
[2024-05-13] MEDS ORDERED: predniSONE 5 MG TAB PO SCH (14:00)
--- NOTE | 2024-05-13 14:52 | Electrocardiogram Report ---
Test Reason : Blood Pressure : */* mmHG Vent. Rate : 68 BPM Atrial Rate : 68 BPM P-R Int : 168 ms QRS Dur : 86 ms QT Int : 356 ms P-R-T Axes : 34 20 165 degrees QTcB Int : 378 ms Sinus rhythm with occasional Premature ventricular complexes Abnormal ECG When compared with ECG of 28-Mar-2022 17:52, Premature ventricular complexes are now Present Non-specific change in ST segment in Inferior leads T wave inversion less evident in Inferior leads Confirmed by Henry Lares ([id number]) on 05/13/2024 2:51:42 PM Referred By: REFERRED SELF Confirmed By: Henry Lares
== END 2024-05-13 13:35 | disposition home or self-care (01) ==
LOC: ED 01:06 → 2N 01:06 → SUATTDRO 03:13 → 2N 04:15
DX: Z95.5 Presence of coronary angioplasty implant and graft; M35.3 Polymyalgia rheumatica; G47.33 Obstructive sleep apnea (adult) (pediatric); Z79.899 Other long term (current) drug therapy; I25.10 Atherosclerotic heart disease of native coronary artery without angina pectoris; Z79.85 Long-term (current) use of injectable non-insulin antidiabetic drugs; Z79.52 Long term (current) use of systemic steroids; R07.9 Chest pain, unspecified; I25.2 Old myocardial infarction; I48.0 Paroxysmal atrial fibrillation; I10 Essential (primary) hypertension; Z79.82 Long term (current) use of aspirin

== ENCOUNTER 2024-05-15 21:25 | Inpatient (IN) ==
[2024-05-15 21:51] LABS: Basophils # (auto) 0.03 K/uL (0.00-0.20); Basophils % (auto) 0.3 %; Hematocrit (blood only) 44.6 % (42.0-52.0); Hemoglobin 15.1 g/dl (14.0-18.0); Lymphocytes # (auto) 1.86 K/uL (1.20-3.40); Lymphocytes % (auto) 18.6 %; Mean Corpuscular Hemoglobin 29.2 pg (25.0-34.0); Mean Corpuscular Hgb Conc 33.9 g/dL (32.0-36.0); Mean Corpuscular Volume 86.3 fL (80.0-100.0); Mean Platelet Volume 9.8 fL (9.4-12.4); Monocytes # (auto) 0.79 K/uL (0.11-0.59); Monocytes % (auto) 7.9 %; Neutrophils # (auto) 7.13 K/uL (1.40-6.50); Neutrophils % (auto) 71.2 %; Platelet Count 218 K/uL (130-400); RDW Coefficient of Variation 13.7 % (11.5-14.5); RDW Standard Deviation 43.6 fL (36.4-46.3); Red Blood Count 5.17 M/uL (4.70-6.10); White Blood Count 10.01 K/ul (4.8-10.8)
[2024-05-15 22:07] LABS: Albumin Globulin Ratio 1.7 (0.9-2); Albumin Level 3.8 gm/dl (3.4-5.0); BUN Creatinine Ratio 37.3 (10-20); Bilirubin,Total 0.4 mg/dl (0.2-1.0); Calcium 8.8 mg/dl (8.6-10.3); Creatinine Clr Calc Pharmacy 120.4 ml/min; Globulin 2.3 gm/dl (2.5-4.0); Total Protein 6.1 gm/dl (6.0-8.3)
[2024-05-15 22:20] LABS: Troponin I High Sensitivity 233.8 pg/ml (0-20)
--- NOTE | 2024-05-15 22:23 | Emergency Department Note ---
ED Provider Note CHIEF COMPLAINT: Chest pain HISTORY OF PRESENTING ILLNESS: This 68-year-old male patient presents emergency department via EMS for evaluation of severe midsternal chest pain that started 1 hour prior to EMS arrival. The pain is radiating into his neck and bilateral arms. His initial blood pressure was 202/136 for EMS. The patient got 2 nitro in the ambulance and his blood pressure improved to 138/91. His pain also improved from 10 out of 10 to 2 out of 10. The patient did take 4 baby aspirin prior to arrival. The patient was sleeping when the pain started. He states he was unable to get up due to the pain. The patient was seen on 05/12/2024 for similar symptoms, but worse tonight. The patient was admitted at that time with a normal echo. He states that they thought his symptoms were secondary to the prednisone and acid reflux. The patient has a history of an LA in January 2022. REVIEW OF SYSTEMS: See HPI for pertinent positives and pertinent negatives. ALLERGIES: [] MEDICATIONS: [] PAST MEDICAL HISTORY: [] PHYSICAL EXAM: [] DIFFERENTIAL DIAGNOSIS: [] ED COURSE AND MEDICAL DECISION MAKING: HISTORY FROM INDEPENDENT HISTORIAN: [] MEDICATIONS GIVEN: [] MONITOR: Continuous cardiac care nurse: Order was placed for continuous cardiac care nurse. Patient was placed on the cardiac care nurse and continuous pulse ox. Patient was noted to be in normal sinus rhythm at an initial rate of [] bpm per my interpretation. EKG: EKG was interpreted by myself as []. INTERPRETATION OF LABS: I interpreted the labs with full lab results as below in the lab section of this note. Laboratory results pertinent to the emergent complaint are discussed in the MDM section below. The patient was advised to follow up with their PCP and/or specialist(s) for further outpatient monitoring and management of any abnormal results. INTERPRETATION OF IMAGING: Imaging studies were interpreted by myself and read by radiology as per the imaging section of this note. The patient was advised to follow up with their PCP and/or specialist(s) for further outpatient management of any non-emergent abnormal findings. [] EXTERNAL RECORDS REVIEWED: [] CHRONIC MEDICAL/SOCIAL CONDITIONS AFFECTING CARE: [] ESCALATION OF CARE CONSIDERED: [] CONSULTATIONS: [] PROCEDURES: [] SPLINTING: Definitive fracture care was performed by myself. The patient was placed in [] under my direction. Neurovascular status was rechecked and intact. MDM SUMMARY: I examined the patient. An IV lock was placed and labs were drawn. []. The patient is to have close outpatient follow-up with a recheck of their symptoms. To return to the ER sooner for any significantly changing or worsening symptoms. The [] educated on the treatment plan and the discharge instructions. The patient was discharged home in stable condition []. DIAGNOSIS: [] TREATMENT PLAN/DISCHARGE INSTRUCTIONS: [] You have been examined and treated today on an emergency basis only. Your workup in the ER did not reveal the need for further emergency workup/treatment or admission at this time. However, this ER visit is not a substitute for, or an effort to provide, complete comprehensive medical care. It is impossible to recognize and treat all injuries or illnesses in a single emergency department visit. It is therefore important that you follow up closely with your family doctor and/or your specialist(s) if applicable for further outpatient evaluation and treatment. It is also important that you follow-up with your family doctor and/or your specialist(s) for further monitoring and outpatient management of any abnormalities seen on your laboratory studies and/or imaging. Call your family doctor and/or specialist(s) as soon as possible to schedule an appointment for follow up from your emergency department visit. Past Med/Surg History Problem List (Updated 05/13/24 @ 05:28 by Saba Onofre DO) Acute non-ST elevation myocardial infarction (NSTEMI) (Acute) Chest pain CAD (coronary artery disease) Polymyalgia rheumatica on chronic prednisone therapy Bacterial sinusitis PAF (paroxysmal atrial fibrillation) Muscular aches Nocturnal hypoxemia Moderate obstructive sleep apnea Class 1 obesity with serious comorbidity and body mass index (BMI) of 34.0 to 34.9 in adult Snoring Atherosclerotic heart disease of [place] coronary artery with other forms of angina pectoris Atherogenic dyslipidemia Benign essential hypertension Medical History History of inferior wall myocardial infarction Insufficient sleep syndrome Hypersomnia Left shoulder pain Chronic knee pain Class 2 obesity due to excess calories with body mass index (BMI) of 38.0 to 38.9 in adult Abdominal pain COVID Nausea and vomiting after administration of anesthetic agent Surgical History History of heart artery stent History of removal of cyst off back History of arthroscopy of right shoulder History of arthroscopy of right knee x2 History of arthroscopy of left knee x2 History of repair of anterior cruciate ligament of left knee History of colonoscopy History of esophagogastroduodenoscopy (EGD) History of wisdom tooth extraction Status post correction of deviated nasal septum Status post myringotomy with tube placement of both ears Family History Grandmother (Paternal) Family history of diabetes mellitus Other No family history of adverse response to anesthesia Denies family history of Ovarian cancer Prostate cancer Myocardial infarction Breast cancer Colorectal cancer Social History Smoking Status: Never smoker Second Hand Exposure: No; Do You Dip or Chew Tobacco: No; Hx Alcohol Use: Yes Alcohol type: beer Hx Substance Use: No Preferred Language: Upper Sorbian Communication Ability: Effective Visual Impairment: No Limitations Hearing Ability: Normal Tick Eradicator Required: No Beliefs That Will Affect Care: None marital status: Single Current Living Situation: Alone current occupational status: employed current occupation: Researcher Feels Safe at Home: Yes Diet: regular Dental Care, Regularly: Yes Physical Activity Frequency: 1-2 Times per Week Seatbelt Use: sometimes Sunscreen Use: No Assistive Devices: Glasses Allergies Allergies Allergy/AdvReac Type Severity Reaction Status Date / Time No Known Allergies Allergy Verified 05/13/24 02:23 Home Meds Home Medications Medication Instructions Recorded Confirmed ibuprofen 200 mg tablet (Advil) 200 mg PO Q6H PRN Pain 03/06/23 05/15/24 acetaminophen 500 mg tablet 500 mg PO Q6H PRN Pain 05/13/24 05/15/24 (Tylenol Extra Strength) aspirin 325 mg tablet 325 mg PO DIRECTED PRN Pain 05/13/24 05/15/24 prednisone 5 mg tablet 15 mg PO DAILY 05/13/24 05/15/24 tirzepatide (weight loss) 15 15 mg subcut WK 05/13/24 05/15/24 mg/0.5 mL subcutaneous pen injector (Zepbound) Previous Rx's Medication Instructions Recorded aspirin 81 mg tablet,delayed 81 mg PO DAILY #0 tabs 05/13/24 release (Adult Low Dose Aspirin) omeprazole 40 mg capsule,delayed 40 mg PO DAILY WHEN TAKES 05/13/24 release PREDNISONE/UPSET STOMACH #0 caps Results & Data (ED) Vital Signs Vital Signs - 24 hr 05/15/24 21:26 05/15/24 21:29 05/15/24 21:34 Temperature 37.4 C Temperature Source Oral Pulse Rate 65 64 Pulse Rate [Apical] Pulse Rhythm [Apical] Respiratory Rate 15 Respiratory Depth Normal Blood Pressure 125/73 Blood Pressure [Right Arm] Blood Pressure Mean 90 Blood Pressure Mean [Right Arm] Pulse Oximetry 95 96 Oxygen Delivery Method Room Air Nasal Cannula Oxygen Flow Rate 2 Sepsis Recent Fever Within 48 Hours No Sepsis New/Unexplained Change in Mental Status No Sepsis Action Taken by Nursing No Action Required 05/15/24 21:35 Temperature Temperature Source Pulse Rate Pulse Rate [Apical] 72 Pulse Rhythm [Apical] Regular Respiratory Rate 20 Respiratory Depth Normal Blood Pressure Blood Pressure [Right Arm] 125/73 Blood Pressure Mean Blood Pressure Mean [Right Arm] 90 Pulse Oximetry 96 Oxygen Delivery Method Oxygen Flow Rate Sepsis Recent Fever Within 48 Hours Sepsis New/Unexplained Change in Mental Status Sepsis Action Taken by Nursing Laboratory Data 05/15/24 21:34 05/15/24 21:34 Lab Results 05/15/24 Range/Units 21:34 WBC 10.01 (4.8-10.8) K/ul RBC 5.17 (4.70-6.10) M/uL Hgb 15.1 (14.0-18.0) g/dl Hct 44.6 (42.0-52.0) % MCV 86.3 (80.0-100.0) fL MCH 29.2 (25.0-34.0) pg MCHC 33.9 (32.0-36.0) g/dL RDW Std Deviation 43.6 (36.4-46.3) fL RDW Coeff of [place] 13.7 (11.5-14.5) % Plt Count 218 (130-400) K/uL MPV 9.8 (9.4-12.4) fL Immature Gran % (Auto) 1.0 % Neut % (Auto) 71.2 % Lymph % (Auto) 18.6 % Nance % (Auto) 7.9 % Eos % (Auto) 1.0 % Baso % (Auto) 0.3 % Neut # (Auto) 7.13 H (1.40-6.50) K/uL Lymph # (Auto) 1.86 (1.20-3.40) K/uL Nance # (Auto) 0.79 H (0.11-0.59) K/uL Eos # (Auto) 0.10 (0.00-0.50) K/uL Baso # (Auto) 0.03 (0.00-0.20) K/uL Immature Gran # (Auto) 0.10 (0.01-0.20) K/uL Sodium 139 (136-145) mmol/L Potassium 4.0 (3.5-5.1) mmol/L Chloride 109 H (98-107) mmol/L Carbon Dioxide 26 (21-32) mmol/L Anion Gap 4 (3-11) BUN 28 H (6-23) mg/dl Creatinine 0.75 (0.6-1.4) mg/dl Est Cr Clr Drug Dosing 120.4 ml/min eGFR 97.69 BUN/Creatinine Ratio 37.3 H (10-20) Glucose 91 (70-99(Fasting)) mg/dl Calcium 8.8 (8.6-10.3) mg/dl Total Bilirubin 0.4 (0.2-1.0) mg/dl AST 14 (13-39) U/L ALT 14 (7-52) U/L Alkaline Phosphatase 64 (34-104) U/L Total Protein 6.1 (6.0-8.3) gm/dl Albumin 3.8 (3.4-5.0) gm/dl Globulin 2.3 L (2.5-4.0) gm/dl Albumin/Globulin Ratio 1.7 (0.9-2) Lipase 34 (11-82) U/L Discharge Plan Visit Data Chief Complaint: Chest Pain Stated Complaint: Chest Pain ED Provider: Radu Mustafa ED Midlevel Provider: Elli Bland Forms Stand Alone Forms: My [facility] Prescriptions Prescriptions: No Action ibuprofen [Advil] 200 mg tablet 200 mg PO Q6H PRN (Reason: Pain) aspirin 325 mg Tablet 325 mg PO DIRECTED PRN (Reason: Pain) acetaminophen [Tylenol Extra Strength] 500 mg Tablet 500 mg PO Q6H PRN (Reason: Pain) prednisone 5 mg tablet 15 mg PO DAILY Zepbound 15 mg/0.5 mL pen injector 15 mg subcut WK Rx Instructions: TUESDAYS omeprazole 40 mg capsule,delayed release(DR/EC) 40 mg PO DAILY Qty: 0 0RF Rx Instructions: take 30 minutes prior to food once a day while on Prednisone aspirin [Adult Low Dose Aspirin] 81 mg tablet,delayed release (DR/EC) 81 mg PO DAILY Qty: 0 0RF Rx Instructions: PER PT "WHEN I NEED IT". Referrals Referrals: Ham Hernandez, [Primary Care Provider] -
[2024-05-15] MEDS: OPTIRAY 320 125ml IV ONE (22:50)
[2024-05-15] MEDS: NITROGLYCERIN 2% OINTMENT 30GM TUBE EXT ONE (23:13)
--- NOTE | 2024-05-15 23:27 | XRay Report ---
Exam(s): XR CXR 1 VIEW EXAM: XR Chest, 1 View CLINICAL HISTORY: Chest pain, nonspecific. TECHNIQUE: Frontal view of the chest. COMPARISON: Portable chest single view 05/13/2024 FINDINGS: Lungs: Similar curvilinear changes in the peripheral left lung base. No focal airspace consolidation. The pulmonary vasculature is unremarkable. Pleural space: Unremarkable. No pneumothorax. No large pleural effusion. Heart: The cardiac silhouette is within normal limits, accounting for portable technique. Mediastinum: The mediastinal contours are stable, accounting for slight lordotic technique. No tracheal deviation. Bones/joints: Unremarkable. No acute fracture. IMPRESSION: No acute cardiopulmonary process identified. The previously questioned pulmonary vascular congestion pattern has resolved with slight improved lung expansion, consistent with previous pulmonary vascular crowding. Electronically signed by: Dawit Mays MD 05/15/24 23:26 PM
--- NOTE | 2024-05-15 23:34 | CT Scan Report ---
Exam(s): CTA ABDOMEN + PELVIS With Contrast IV Amt: 118 ml optiray 320 EXAM: CT Angiography Abdomen and Pelvis With Intravenous Contrast CLINICAL HISTORY: Evaluate for potential dissection. TECHNIQUE: Axial computed tomographic angiography images of the abdomen and pelvis with intravenous contrast. CTDI is 27.54 mGy and DLP is 2958.66 mGy-cm. Automated exposure control was utilized for the study. A dose lowering technique was utilized adhering to the principles of ALARA. MIP reconstructed images were created and reviewed. CONTRAST: Patient received 118 ml optiray 320 of IV contrast COMPARISON: No relevant prior studies available. FINDINGS: VASCULATURE: Aorta: No abdominal aortic aneurysm or dissection. No acute periaortic abnormality identified. No precontrast imaging performed. Celiac trunk and mesenteric arteries: No acute findings. No occlusion or significant stenosis. Renal arteries: No acute findings. No occlusion or significant stenosis. Iliac arteries: No acute findings. No occlusion or significant stenosis. Lung bases: Unremarkable. No mass. No consolidation. ABDOMEN: Liver: Hepatic steatosis. Gallbladder and bile ducts: Unremarkable. No calcified stones. No ductal dilation. Pancreas: Unremarkable. No ductal dilation. No mass. Spleen: Heterogeneous enhancement of the spleen is within normal limits given early arterial phase imaging. Adrenals: Unremarkable. No mass. Kidneys and ureters: Unremarkable. No hydronephrosis. No solid mass. Stomach and bowel: The stomach is moderately distended with retained oral contents. No gastric mucosal thickening. No evidence for focal bowel obstruction. Fecal appearing material in nondilated small bowel loops in the right lower quadrant is noted. Mild to moderate stool burden. No appreciable diverticulitis. PELVIS: Appendix: No findings to suggest acute appendicitis. Bladder: Unremarkable. No mass. Reproductive: Unremarkable as visualized. ABDOMEN and PELVIS: Intraperitoneal space: Unremarkable. No significant fluid collection. No free air. Bones/joints: Laminectomy defects from L4-L5. No acute osseous abnormality. No dislocation. Soft tissues: Unremarkable. Lymph nodes: Unremarkable. No enlarged lymph nodes. IMPRESSION: 1. No abdominal aortic aneurysm or dissection. 2. No evidence for focal bowel obstruction. Fecal appearing material in nondilated small bowel loops in the right lower quadrant is nonspecific in appearance and may represent normal variation or enteritis with delayed transit through the small bowel. Mild to moderate stool burden. No appreciable diverticulitis. No free intraperitoneal fluid or pneumoperitoneum. Incidental normal caliber appendix. Electronically signed by: Dawit Mays MD 05/15/24 23:33 PM
--- NOTE | 2024-05-15 23:42 | CT Scan Report ---
Exam(s): CTA CHEST W/WO Contrast IV Amt: 118 ml optiray 320 EXAM: CT Angiography Chest Without and With Intravenous Contrast CLINICAL HISTORY: Evaluate for potential dissection. TECHNIQUE: Axial computed tomographic angiography images of the chest without and with intravenous contrast using aortic dissection protocol. CTDI is 27. 54 mGy and DLP is 2958 mGy-cm. Automated exposure control was utilized for the study. A dose lowering technique was utilized adhering to the principles of ALARA. MIP reconstructed images were created and reviewed. CONTRAST: Patient received 118 ml optiray 320 of IV contrast COMPARISON: No relevant prior studies available. FINDINGS: Aorta: The ascending aorta is ectatic, with the mid ascending aorta measuring 3.8 x 3.6 cm. The aortic arch and descending aorta are normal in caliber. No dissection or intimal wall abnormality identified on precontrast imaging. No acute periaortic abnormality. Great vessels of aortic arch: No acute findings. No dissection. No arterial occlusion or significant stenosis. Lungs: Dependent curvilinear and ground-glass changes in the posterior aspect of both lungs. No focal airspace consolidation. No mass. Pleural space: Unremarkable. No significant effusion. No pneumothorax. Heart: Cardiac chambers are mildly prominent. At least moderate coronary artery calcification noted in the circumflex and right mid RCA segments. No pericardial effusion. Bones/joints: No acute osseous abnormality. Chronic anterior wedging noted from T8-T11 levels, resulting in accentuated kyphosis. No dislocation. Soft tissues: Unremarkable. Lymph nodes: Unremarkable. No enlarged lymph nodes. IMPRESSION: 1. The ascending aorta is ectatic, with the mid ascending aorta measuring 3.8 x 3.6 cm. The aortic arch and descending aorta are normal in caliber. No dissection or intimal wall abnormality identified on precontrast imaging. No acute periaortic abnormality. 2. Dependent curvilinear and ground-glass presumed atelectatic changes in the posterior aspect of both lungs. No focal airspace consolidation. No pleural effusion or pneumothorax. Electronically signed by: Dawit Mays MD 05/15/24 23:41 PM
--- NOTE | 2024-05-16 00:44 | Emergency Department Note ---
History of Present Illness General Chief Complaint: Chest Pain Stated Complaint: Chest Pain Time Seen by Provider: 05/15/24 22:19 History of Present Illness Provider Complaint: chest pain Onset (ago): hour(s) 2 Duration: improved Pain Location: substernal Pain Radiation: jaw/teeth Maximum Pain Intensity: 2 Current Pain Intensity: 10 Quality: + heaviness (Pressure) Relieved By: + nitroglycerin Exacerbated By: + nothing Context: no recent illness, no recent surgery, no recent immobilization, no recent travel, no trauma/injury, no new medications or no history of DVT/PE Associated symptoms: + dyspnea; no nausea, no vomiting, no diaphoresis, no syncope, no palpitations, no fever or no cough Treatments prior to arrival: aspirin and nitroglycerin (2 sublingual) Home Medications Medication Instructions Recorded Confirmed Type ibuprofen 200 mg tablet (Advil) 200 mg PO Q6H PRN Pain 03/06/23 05/16/24 History acetaminophen 500 mg tablet 500 mg PO Q6H PRN Pain 05/13/24 05/16/24 History (Tylenol Extra Strength) aspirin 325 mg tablet 325 mg PO DIRECTED PRN Pain 05/13/24 05/16/24 History aspirin 81 mg tablet,delayed 81 mg PO DAILY #0 tabs 05/13/24 05/16/24 Rx release (Adult Low Dose Aspirin) omeprazole 40 mg capsule,delayed 40 mg PO DAILY WHEN TAKES 05/13/24 05/16/24 Rx release PREDNISONE/UPSET STOMACH #0 caps prednisone 5 mg tablet 15 mg PO DAILY 05/13/24 05/16/24 History tirzepatide (weight loss) 15 15 mg subcut WK 05/13/24 05/16/24 History mg/0.5 mL subcutaneous pen injector (Zepbound) Allergies Allergy/AdvReac Type Severity Reaction Status Date / Time No Known Allergies Allergy Verified 05/13/24 02:23 Past Med/Surg History Problem List Acute non-ST elevation myocardial infarction (NSTEMI) (Acute) Chest pain CAD (coronary artery disease) Polymyalgia rheumatica on chronic prednisone therapy Bacterial sinusitis PAF (paroxysmal atrial fibrillation) Muscular aches Nocturnal hypoxemia Moderate obstructive sleep apnea Class 1 obesity with serious comorbidity and body mass index (BMI) of 34.0 to 34.9 in adult Snoring Atherosclerotic heart disease of [place] coronary artery with other forms of angina pectoris Atherogenic dyslipidemia Benign essential hypertension Medical History History of inferior wall myocardial infarction Insufficient sleep syndrome Hypersomnia Left shoulder pain Chronic knee pain Class 2 obesity due to excess calories with body mass index (BMI) of 38.0 to 38.9 in adult Abdominal pain COVID Nausea and vomiting after administration of anesthetic agent Surgical History History of heart artery stent History of removal of cyst off back History of arthroscopy of right shoulder History of arthroscopy of right knee x2 History of arthroscopy of left knee x2 History of repair of anterior cruciate ligament of left knee History of colonoscopy History of esophagogastroduodenoscopy (EGD) History of wisdom tooth extraction Status post correction of deviated nasal septum Status post myringotomy with tube placement of both ears Family History Grandmother (Paternal) Family history of diabetes mellitus Other No family history of adverse response to anesthesia Denies family history of Ovarian cancer Prostate cancer Myocardial infarction Breast cancer Colorectal cancer Social History Smoking Status: Never smoker Second Hand Exposure: No; Do You Dip or Chew Tobacco: No; Hx Alcohol Use: Yes Alcohol type: beer Hx Substance Use: No Preferred Language: Ukrainian Communication Ability: Effective Visual Impairment: No Limitations Hearing Ability: Normal Backrest Assembler Required: No Beliefs That Will Affect Care: None marital status: Single Current Living Situation: Alone current occupational status: employed current occupation: Researcher Feels Safe at Home: Yes Diet: regular Dental Care, Regularly: Yes Physical Activity Frequency: 1-2 Times per Week Seatbelt Use: sometimes Sunscreen Use: No Assistive Devices: Glasses Physical Exam Vital Signs Vital Signs - 24 hr 05/15/24 21:26 05/15/24 21:29 05/15/24 21:34 Temperature 37.4 C Temperature Source Oral Pulse Rate 65 64 Pulse Rate [Apical] Pulse Rhythm [Apical] Respiratory Rate 15 Respiratory Depth Normal Blood Pressure 125/73 Blood Pressure [Right Arm] Blood Pressure Mean 90 Blood Pressure Mean [Right Arm] Pulse Oximetry 95 96 Oxygen Delivery Method Room Air Nasal Cannula Oxygen Flow Rate 2 Sepsis Recent Fever Within 48 Hours No Sepsis New/Unexplained Change in Mental Status No Sepsis Action Taken by Nursing No Action Required 05/15/24 21:35 05/15/24 23:13 05/16/24 00:00 Temperature Temperature Source Pulse Rate Pulse Rate [Apical] 72 72 64 Pulse Rhythm [Apical] Regular Respiratory Rate 20 22 18 Respiratory Depth Normal Blood Pressure Blood Pressure [Right Arm] 125/73 143/98 H 120/79 Blood Pressure Mean Blood Pressure Mean [Right Arm] 90 113 92 Pulse Oximetry 96 96 97 Oxygen Delivery Method Room Air Oxygen Flow Rate Sepsis Recent Fever Within 48 Hours Sepsis New/Unexplained Change in Mental Status Sepsis Action Taken by Nursing Physical Exam GENERAL: oriented to person, place, and time. appears well-developed and well- nourished. HENT: Exam performed. - Head: Normocephalic and atraumatic. EYES: Conjunctivae and EOM are normal. Right eye exhibits no discharge. Left eye exhibits no discharge. No scleral icterus. NECK: Normal range of motion. Neck supple. No JVD present. CV: Normal rate, regular rhythm, normal heart sounds and intact distal pulses. There is no peripheral edema. Palpable radial pulses bue. PULM/CHEST: Effort normal and breath sounds normal. No respiratory distress. No stridor. no wheezes. no rales. ABD: The abdomen is soft. There is no tenderness. NEURO: Motor and sensation grossly intact. SKIN: Skin is warm and dry. He is not diaphoretic. PSYCH: normal mood and affect. Behavior is normal. Judgment and thought content normal. Course Course 2218: The patient was evaluated in room A11. A complete history and physical exam was performed Cardiac monitoring: An order was placed for continuous cardiac monitoring. The monitor shows a rate of 70 with sinus rhythm interpreted by me Patient was seen during a time of extreme volume and extreme acuity. Nursing triage protocols were initiated labs and imaging was conducted by protocol in the triage area. Patient's high sensitive troponin is elevated to 233.8 up from 22 2 days ago. External medical records reviewed. Patient was admitted on May 13, 2024 and discharged on May 13, 2024. At that time he was admitted for chest pain I had a downtrending troponin. An echo was conducted which showed normal left ventricular size and systolic function but did show mild to moderate mitral regurgitation and tricuspid regurgitation with a dilated left atrium. Will obtain CTA of the chest to rule out dissection. 2255: Patient having increasing chest pain. CTA of the chest abdomen pelvis viewed by me showed no dissection. Repeat EKG unremarkable. Will await formal radiology read before starting heparin for most likely NSTEMI. Nitropaste and morphine ordered for the patient. 0015: Vital signs stable. Delta troponin is greater than 300. CT of the chest abdomen pelvis negative for dissection. Patient be started on heparin for NSTEMI. Discussed case with Dr. Franklin to evaluate the patient for admission. Administered Medications Discontinued Medications Ioversol (Optiray 320 125ml) 125 ml IV ONCE ONE Stop: 05/15/24 22:50 Last Admin: 05/15/24 22:50 Dose: 118 ml Documented By: JEROME Nitroglycerin (Nitroglycerin 2% Ointment 30gm Tube) 0.5 inch EXT NOW ONE Stop: 05/15/24 23:04 Last Admin: 05/15/24 23:13 Dose: 0.5 inch Documented By: ASHOK Medical Decision Making Medical Records Attestation: I reviewed the patient's medical records. Medical records narrative: External medical records reviewed. Patient was admitted on May 13, 2024 and discharged on May 13, 2024. At that time he was admitted for chest pain I had a downtrending troponin. An echo was conducted which showed normal left ventricular size and systolic function but did show mild to moderate mitral regurgitation and tricuspid regurgitation with a dilated left atrium. Laboratory Data Attestation: I reviewed the patient's lab results. 05/15/24 21:34 05/15/24 21:34 Labs: Lab Results 05/15/24 05/15/24 Range/Units 21:34 23:13 WBC 10.01 (4.8-10.8) K/ul RBC 5.17 (4.70-6.10) M/uL Hgb 15.1 (14.0-18.0) g/dl Hct 44.6 (42.0-52.0) % MCV 86.3 (80.0-100.0) fL MCH 29.2 (25.0-34.0) pg MCHC 33.9 (32.0-36.0) g/dL RDW Std Deviation 43.6 (36.4-46.3) fL RDW Coeff of [place] 13.7 (11.5-14.5) % Plt Count 218 (130-400) K/uL MPV 9.8 (9.4-12.4) fL Immature Gran % (Auto) 1.0 % Neut % (Auto) 71.2 % Lymph % (Auto) 18.6 % [place] % (Auto) 7.9 % Eos % (Auto) 1.0 % Baso % (Auto) 0.3 % Neut # (Auto) 7.13 H (1.40-6.50) K/uL Lymph # (Auto) 1.86 (1.20-3.40) K/uL [place] # (Auto) 0.79 H (0.11-0.59) K/uL Eos # (Auto) 0.10 (0.00-0.50) K/uL Baso # (Auto) 0.03 (0.00-0.20) K/uL Immature Gran # (Auto) 0.10 (0.01-0.20) K/uL Sodium 139 (136-145) mmol/L Potassium 4.0 (3.5-5.1) mmol/L Chloride 109 H (98-107) mmol/L Carbon Dioxide 26 (21-32) mmol/L Anion Gap 4 (3-11) BUN 28 H (6-23) mg/dl Creatinine 0.75 (0.6-1.4) mg/dl Est Cr Clr Drug Dosing 120.4 ml/min eGFR 97.69 BUN/Creatinine Ratio 37.3 H (10-20) Glucose 91 (70-99(Fasting)) mg/dl Calcium 8.8 (8.6-10.3) mg/dl Total Bilirubin 0.4 (0.2-1.0) mg/dl AST 14 (13-39) U/L ALT 14 (7-52) U/L Alkaline Phosphatase 64 (34-104) U/L Troponin I High Sens 233.8 H* 343.1 H* D (0-20) pg/ml Total Protein 6.1 (6.0-8.3) gm/dl Albumin 3.8 (3.4-5.0) gm/dl Globulin 2.3 L (2.5-4.0) gm/dl Albumin/Globulin Ratio 1.7 (0.9-2) Lipase 34 (11-82) U/L Imaging Data Chest x-ray: Attestation: I personally reviewed and interpreted this imaging study as follows: My impression: Chest x-ray negative. Airway clear. No pneumothorax. No consolidation. No cardiomegaly or cephalization.. No free air under the diaphragm. No fractures of the skeletal structures. Radiologist's impression: Exam(s): XR CXR 1 VIEW EXAM: XR Chest, 1 View CLINICAL HISTORY: Chest pain, nonspecific. TECHNIQUE: Frontal view of the chest. COMPARISON: Portable chest single view 05/13/2024 FINDINGS: Lungs: Similar curvilinear changes in the peripheral left lung base. No focal airspace consolidation. The pulmonary vasculature is unremarkable. Pleural space: Unremarkable. No pneumothorax. No large pleural effusion. Heart: The cardiac silhouette is within normal limits, accounting for portable technique. Mediastinum: The mediastinal contours are stable, accounting for slight lordotic technique. No tracheal deviation. Bones/joints: Unremarkable. No acute fracture. IMPRESSION: No acute cardiopulmonary process identified. The previously questioned pulmonary vascular congestion pattern has resolved with slight improved lung expansion, consistent with previous pulmonary vascular crowding. Electronically signed by: Dawit Mays MD 05/15/24 23:26 PM Dictated: 05/15/242325 Transcribed: 05/15/242325 CT scan - abdomen: Attestation: I personally reviewed and interpreted this imaging study as follows: My impression: No dissection Radiologist's impression: Exam(s): CTA ABDOMEN + PELVIS With Contrast IV Amt: 118 ml optiray 320 EXAM: CT Angiography Abdomen and Pelvis With Intravenous Contrast CLINICAL HISTORY: Evaluate for potential dissection. TECHNIQUE: Axial computed tomographic angiography images of the abdomen and pelvis with intravenous contrast. CTDI is 27.54 mGy and DLP is 2958.66 mGy-cm. Automated exposure control was utilized for the study. A dose lowering technique was utilized adhering to the principles of ALARA. MIP reconstructed images were created and reviewed. CONTRAST: Patient received 118 ml optiray 320 of IV contrast COMPARISON: No relevant prior studies available. FINDINGS: VASCULATURE: Aorta: No abdominal aortic aneurysm or dissection. No acute periaortic abnormality identified. No precontrast imaging performed. Celiac trunk and mesenteric arteries: No acute findings. No occlusion or significant stenosis. Renal arteries: No acute findings. No occlusion or significant stenosis. Iliac arteries: No acute findings. No occlusion or significant stenosis. Lung bases: Unremarkable. No mass. No consolidation. ABDOMEN: Liver: Hepatic steatosis. Gallbladder and bile ducts: Unremarkable. No calcified stones. No ductal dilation. Pancreas: Unremarkable. No ductal dilation. No mass. Spleen: Heterogeneous enhancement of the spleen is within normal limits given early arterial phase imaging. Adrenals: Unremarkable. No mass. Kidneys and ureters: Unremarkable. No hydronephrosis. No solid mass. Stomach and bowel: The stomach is moderately distended with retained oral contents. No gastric mucosal thickening. No evidence for focal bowel obstruction. Fecal appearing material in nondilated small bowel loops in the right lower quadrant is noted. Mild to moderate stool burden. No appreciable diverticulitis. PELVIS: Appendix: No findings to suggest acute appendicitis. Bladder: Unremarkable. No mass. Reproductive: Unremarkable as visualized. ABDOMEN and PELVIS: Intraperitoneal space: Unremarkable. No significant fluid collection. No free air. Bones/joints: Laminectomy defects from L4-L5. No acute osseous abnormality. No dislocation. Soft tissues: Unremarkable. Lymph nodes: Unremarkable. No enlarged lymph nodes. IMPRESSION: 1. No abdominal aortic aneurysm or dissection. 2. No evidence for focal bowel obstruction. Fecal appearing material in nondilated small bowel loops in the right lower quadrant is nonspecific in appearance and may represent normal variation or enteritis with delayed transit through the small bowel. Mild to moderate stool burden. No appreciable diverticulitis. No free intraperitoneal fluid or pneumoperitoneum. Incidental normal caliber appendix. Electronically signed by: Dawit Mays MD 05/15/24 23:33 PM Dictated: 05/15/24 2333 Transcribed: 05/15/[address] scan - chest: Attestation: I personally reviewed and interpreted this imaging study as follows: My impression: No dissection Radiologist's impression: Exam(s): CTA CHEST W/WO Contrast IV Amt: 118 ml optiray 320 EXAM: CT Angiography Chest Without and With Intravenous Contrast CLINICAL HISTORY: Evaluate for potential dissection. TECHNIQUE: Axial computed tomographic angiography images of the chest without and with intravenous contrast using aortic dissection protocol. CTDI is 27. 54 mGy and DLP is 2958 mGy-cm. Automated exposure control was utilized for the study. A dose lowering technique was utilized adhering to the principles of ALARA. MIP reconstructed images were created and reviewed. CONTRAST: Patient received 118 ml optiray 320 of IV contrast COMPARISON: No relevant prior studies available. FINDINGS: Aorta: The ascending aorta is ectatic, with the mid ascending aorta measuring 3.8 x 3.6 cm. The aortic arch and descending aorta are normal in caliber. No dissection or intimal wall abnormality identified on precontrast imaging. No acute periaortic abnormality. Great vessels of aortic arch: No acute findings. No dissection. No arterial occlusion or significant stenosis. Lungs: Dependent curvilinear and ground-glass changes in the posterior aspect of both lungs. No focal airspace consolidation. No mass. Pleural space: Unremarkable. No significant effusion. No pneumothorax. Heart: Cardiac chambers are mildly prominent. At least moderate coronary artery calcification noted in the circumflex and right mid RCA segments. No pericardial effusion. Bones/joints: No acute osseous abnormality. Chronic anterior wedging noted from T8-T11 levels, resulting in accentuated kyphosis. No dislocation. Soft tissues: Unremarkable. Lymph nodes: Unremarkable. No enlarged lymph nodes. IMPRESSION: 1. The ascending aorta is ectatic, with the mid ascending aorta measuring 3.8 x 3.6 cm. The aortic arch and descending aorta are normal in caliber. No dissection or intimal wall abnormality identified on precontrast imaging. No acute periaortic abnormality. 2. Dependent curvilinear and ground-glass presumed atelectatic changes in the posterior aspect of both lungs. No focal airspace consolidation. No pleural effusion or pneumothorax. Electronically signed by: Dawit Mays MD 05/15/24 23:41 PM Dictated: 05/15/241 Transcribed: 05/15/241 ECG Data Attestation: I personally reviewed and interpreted this ECG as follows: Additional Comments: EKG #1 at 2128: Sinus rhythm with rate of 66. [place] QRS and QTc intervals within normal limits. No ST elevation or ST depression. T wave inversion leads II, III, aVF, V4 V5 V6. No change from EKG in May 13, 2024 EKG #2 at 2251: Sinus rhythm with rate of 72. [place] QRS and QTc intervals within normal limits. No ST elevation or ST depression. T wave inversion leads II, III, aVF, V4 V5 V6. No change from previous EKGs [facility] Narrative 9: The patient was evaluated in room A11. A complete history and physical exam was performed Cardiac monitoring: An order was placed for continuous cardiac monitoring. The monitor shows a rate of 70 with sinus rhythm interpreted by me Patient was seen during a time of extreme volume and extreme acuity. Nursing triage protocols were initiated labs and imaging was conducted by protocol in the triage area. Patient's high sensitive troponin is elevated to 233.8 up from 22 2 days ago. External medical records reviewed. Patient was admitted on May 13, 2024 and discharged on May 13, 2024. At that time he was admitted for chest pain I had a downtrending troponin. An echo was conducted which showed normal left ventricular size and systolic function but did show mild to moderate mitral regurgitation and tricuspid regurgitation with a dilated left atrium. Will obtain CTA of the chest to rule out dissection. 2255: Patient having increasing chest pain. CTA of the chest abdomen pelvis viewed by me showed no dissection. Repeat EKG unremarkable. Will await formal radiology read before starting heparin for most likely NSTEMI. Nitropaste and morphine ordered for the patient. 0015: Vital signs stable. Delta troponin is greater than 300. CT of the chest abdomen pelvis negative for dissection. Patient be started on heparin for NSTEMI. Discussed case with Dr. Franklin to evaluate the patient for admission. Impression & Plan Acute non-ST elevation myocardial infarction (NSTEMI) Critical Care Time Critical Care Time: Yes Total Critical Care Time: 69 I have personally spent greater than 69 minutes of critical care time in the direct management of this patient. This includes bedside care, interpretation of diagnostic studies, and testing, discussion with consultants, patient, and family members, and other required patient management activities. This 69 minutes is in excess of all separately billable procedures. Discharge Plan Visit Data Chief Complaint: Chest Pain Stated Complaint: Chest Pain ED Provider: Radu Mustafa Prescriptions Prescriptions: No Action ibuprofen [Advil] 200 mg tablet 200 mg PO Q6H PRN (Reason: Pain) aspirin 325 mg Tablet 325 mg PO DIRECTED PRN (Reason: Pain) acetaminophen [Tylenol Extra Strength] 500 mg Tablet 500 mg PO Q6H PRN (Reason: Pain) prednisone 5 mg tablet 15 mg PO DAILY Zepbound 15 mg/0.5 mL pen injector 15 mg subcut WK Rx Instructions: TUESDAYS omeprazole 40 mg capsule,delayed release(DR/EC) 40 mg PO DAILY Qty: 0 0RF Rx Instructions: take 30 minutes prior to food once a day while on Prednisone aspirin [Adult Low Dose Aspirin] 81 mg tablet,delayed release (DR/EC) 81 mg PO DAILY Qty: 0 0RF Rx Instructions: PER PT "WHEN I NEED IT".
[2024-05-16 00:45] LABS: Partial Thromboplastin Ratio 0.9; Partial Thromboplastin Time 25 Seconds (21-31)
[2024-05-16] MEDS: HEPARIN SOD (PORCINE) 1000 UNIT/ML IV ONE (00:49)
[2024-05-16] MEDS: HEPARIN 25000 UNIT/500 ML D5W 25,000 UNITS/500 ML BAG IV SCH (00:49)
[2024-05-16] MEDS: Heparin IV Adult Wt-Based Low-Dose w/ INITIAL Bolus Protocol IV STA (00:50)
--- NOTE | 2024-05-16 00:50 | History & Physical Report ---
Date of Service May 16, 2024 Assessment & Plan (1) Acute non-ST elevation myocardial infarction (NSTEMI): (2) CAD (coronary artery disease): (3) PAF (paroxysmal atrial fibrillation): (4) Benign essential hypertension: (5) Atherogenic dyslipidemia: (6) Polymyalgia rheumatica: (7) Moderate obstructive sleep apnea: Plan 68-year-old male with history of coronary artery disease status post STEMI in January 2022 with VALENTIN to OM 2 and RCA, hypertension, hyperlipidemia, polymyalg ia rheumatica on chronic steroids and paroxysmal atrial fibrillation (not on anticoagulation) presenting after episode of severe chest discomfort. Patient with elevated troponin upon arrival at 233 which increased on 2 out of a repeat to 343.1. EKG with T wave abnormalities, no ST elevations. Patient is presently hemodynamically stable, no chest pain #Acute non-ST elevated MIsuspected, patient with episode of substernal chest pain followed by increasing troponin. Some nonspecific EKG changes present. known CAD with drug-eluting stents in placeconcerning the patient was only on an aspirin every other day, no statinraises concern for reocclusion of stents versus progression of new disease? He did have a recent echocardiogram on his last admission 05/13/2024 which revealed no wall motion abnormalities and a normal EF which is reassuring. Admit to PCU Continue to trend troponin Check hemoglobin A1c and lipid panel Continue aspirin 81 mg p.o. daily Continue heparin drip Continue Nitro paste Cardiology consultation appreciated Will keep patient n.p.o. after midnight for possible cardiac catheterization in the morning #Coronary artery diseasepatient with known disease with history of STEMI, 2 drug-eluting stents in place. Concern for NSTEMI on presentation Management as above #Paroxysmal atrial fibrillation. Patient reports low A-fib burden. He is not currently on any anticoagulation. - Would encourage patient to start systemic anticoagulation to lower his stroke risk as his [id number] score = 4 (age 68, history of hypertension, prior AK, diabetes). could consider a Watchman device if he is unable or unwilling to take anticoagulation #Benign essential hypertension- Blood pressure well-controlled - continue Nitropaste Continue to monitor #Dyslipidemia Repeat lipid panel with next blood draw Would encourage statin use given known history of CAD #Polymyalgia rheumatica Continue prednisone 50 mg p.o. daily #Moderate sleep apneapatient does not use CPAP History of Present Illness Chief Complaint: chest pain Primary Care Provider: Ham Hernandez DO Nirmal Waller is a pleasant 68-year-old male with history of hypertension, hyperlipidemia, paroxysmal atrial fibrillation (not on anticoagulation), polymyalgia rheumatica on chronic steroids (prednisone 15 mg p.o. daily) and known CAD with history of STEMI in January 2022 status post PCI with VALENTIN x 1 to the left circumflex/OM 2 and VALENTIN x 1 to the mid RCA (original catheterization report scanned into the records dated 01/27/2022). Patient had been taking aspirin every other day, no statin. Patient initially presented to [facility] on 05/13/2024 with complaint of intermittent chest pain occurring throughout the day with radiation to bilateral arms into the jaw. His initial troponin was mildly elevated 40.4 and EKG with no acute ischemic changes. He was admitted to the hospital and placed on a heparin drip. Patient's repeat troponin declined. He had an echocardiogram with no wall motion abnormalities and normal EF. He was ultimately discharged home later in the day on 05/13/2024 with presumed diagnosis of suspected reflux. Patient was instructed to increase his aspirin to 81 mg daily (rather than every other day) and he was encouraged to continue his daily omeprazole. Patient reports that when he returned home he overall felt well. He continued to have intermittent "twinges" of pain, but no significant or sustained chest pain. He did increase his aspirin to daily and continue taking his omeprazole. This evening around 1900 patient developed some substernal bandlike chest pain with radiation down both arms into his jaw. The pain initially lasted 10 to 15 minutes then resolved. Later in the evening he was laying down to watch TV and he began feeling very uneasy. He again developed substernal chest pain which continued to increase. The pain was bandlike across his chest with radiation down both arms and up his right jaw. Pain 10 out of 10 in nature with associated diaphoresis. He called 911. Per EMS patient's blood pressure markedly elevated 202/136. He was given 2 sprays of nitro with improvement in his blood pressure to 138/91 and improvement of his pain from tentative 10 to a 2 out of 10. He was given 4 baby aspirin prior to arrival. Patient presently with no chest pain. No additional complaints. Specifically denies shortness of breath, cough, dizziness, fever, chills, abdominal pain, nausea, vomiting, diarrhea In the ER patient afebrile, hemodynamically stable ER course: Half inch of Nitropaste Heparin drip initiated Allergies Allergy/AdvReac Type Severity Reaction Status Date / Time No Known Allergies Allergy Verified 05/13/24 02:23 Home Medications Medication Instructions Recorded Confirmed Type ibuprofen 200 mg tablet (Advil) 200 mg PO Q6H PRN Pain 03/06/23 05/16/24 History acetaminophen 500 mg tablet 500 mg PO Q6H PRN Pain 05/13/24 05/16/24 History (Tylenol Extra Strength) aspirin 325 mg tablet 325 mg PO DIRECTED PRN Pain 05/13/24 05/16/24 History aspirin 81 mg tablet,delayed 81 mg PO DAILY #0 tabs 05/13/24 05/16/24 Rx release (Adult Low Dose Aspirin) omeprazole 40 mg capsule,delayed 40 mg PO DAILY WHEN TAKES 05/13/24 05/16/24 Rx release PREDNISONE/UPSET STOMACH #0 caps prednisone 5 mg tablet 15 mg PO DAILY 05/13/24 05/16/24 History tirzepatide (weight loss) 15 15 mg subcut WK 05/13/24 05/16/24 History mg/0.5 mL subcutaneous pen injector (Zepbound) Past Med/Surg History Problem List Acute non-ST elevation myocardial infarction (NSTEMI) (Acute) Acute non-ST elevation myocardial infarction (NSTEMI) (Acute) Chest pain CAD (coronary artery disease) Polymyalgia rheumatica on chronic prednisone therapy Bacterial sinusitis PAF (paroxysmal atrial fibrillation) Muscular aches Nocturnal hypoxemia Moderate obstructive sleep apnea Class 1 obesity with serious comorbidity and body mass index (BMI) of 34.0 to 34.9 in adult Snoring Atherosclerotic heart disease of [place] coronary artery with other forms of angina pectoris Atherogenic dyslipidemia Benign essential hypertension Medical History History of inferior wall myocardial infarction Insufficient sleep syndrome Hypersomnia Left shoulder pain Chronic knee pain Class 2 obesity due to excess calories with body mass index (BMI) of 38.0 to 38.9 in adult Abdominal pain COVID Nausea and vomiting after administration of anesthetic agent Surgical History History of heart artery stent History of removal of cyst off back History of arthroscopy of right shoulder History of arthroscopy of right knee x2 History of arthroscopy of left knee x2 History of repair of anterior cruciate ligament of left knee History of colonoscopy History of esophagogastroduodenoscopy (EGD) History of wisdom tooth extraction Status post correction of deviated nasal septum Status post myringotomy with tube placement of both ears Family History Grandmother (Paternal) Family history of diabetes mellitus Other No family history of adverse response to anesthesia Denies family history of Ovarian cancer Prostate cancer Myocardial infarction Breast cancer Colorectal cancer Social History Smoking Status: Never smoker Second Hand Exposure: No; Do You Dip or Chew Tobacco: No; Hx Alcohol Use: Yes Alcohol type: beer Hx Substance Use: No Preferred Language: Turkmen Communication Ability: Effective Visual Impairment: No Limitations Hearing Ability: Normal Business Travel Consultant Required: No Beliefs That Will Affect Care: None marital status: Single Current Living Situation: Alone current occupational status: employed current occupation: Researcher Feels Safe at Home: Yes Diet: regular Dental Care, Regularly: Yes Physical Activity Frequency: 1-2 Times per Week Seatbelt Use: sometimes Sunscreen Use: No Assistive Devices: Glasses Review of Systems Review of Systems: All systems reviewed & are unremarkable except as noted in HPI & below Physical Exam Physical Exam: General: patient resting comfortably, NAD, non-toxic in appearance, AA&O x 4 Skin: warm, dry, intact, no rashes or lesions HEENT: NC/AT, PERRL, EOMI, anicteric sclera, conjunctiva without injection, external ear normal to inspection and nontender, nares patent, moist mucus membranes, dentition intact, no oropharyngeal lesions, neck supple, trachea midline, no LAD, no thyromegaly, no JVD Heart: +S1/S2, regular, no m/r/g Lungs: equal air entry bilaterally, no rales/rhonchi/wheezes Abd: +BS, soft, NT/ND, no masses/organomegaly/ascites Ext: warm, 2+ pulses in UE/LE bilaterally, no clubbing/cyanosis or edema Neuro: nonfocal, patient AA&O x 4, speech intact, no facial droop, moving all extremities on command with equal strength 5/5 Results & Data Results & Data Vital Signs (Past 12 Hours) Vital Signs Temp Pulse Pulse Resp BP BP Pulse Ox 05/16/24 00:00 64 18 120/79 97 05/15/24 23:13 72 22 143/98 H 96 05/15/24 21:35 72 20 125/73 96 05/15/24 21:34 96 05/15/24 21:29 64 05/15/24 21:26 37.4 C 65 15 125/73 95 O2 Del Method O2 Flow Rate 05/16/24 00:00 05/15/24 23:13 Room Air 05/15/24 21:35 05/15/24 21:34 Nasal Cannula 2 05/15/24 21:29 05/15/24 21:26 Room Air Laboratory Results Laboratory Results WBC 10.01 K/ul (4.8-10.8) 05/15/24 21: RBC 5.17 M/uL (4.70-6.10) 05/15/24 21:34 Hgb 15.1 g/dl (14.0-18.0) 05/15/24 21:34 Hct 44.6 % (42.0-52.0) 05/15/24 21: MCV 86.3 fL (80.0-100.0) 05/15/24 21:34 MCH 29.2 pg (25.0-34.0) 05/15/24 21: MCHC 33.9 g/dL (32.0-36.0) 05/15/24 21:34 RDW Std Deviation 43.6 fL (36.4-46.3) 05/15/24 21:34 RDW Coeff of [place] 13.7 % (11.5-14.5) 05/15/24: Plt Count 218 K/uL (130-400) 05/15/24 21: MPV 9.8 fL (9.4-12.4) 05/15/24 21: Immature Gran % (Auto) 1.0 % 05/15/24: Neut % (Auto) 71.2 % 05/15/24 21:34 Lymph % (Auto) 18.6 % 05/15/24 21:34 [place] % (Auto) 7.9 % 05/15/24 21:34 Eos % (Auto) 1.0 % 05/15/24 21:34 Baso % (Auto) 0.3 % 05/15/24:34 Neut # (Auto) 7.13 K/uL (1.40-6.50) H 05/15/24 21:34 Lymph # (Auto) 1.86 K/uL (1.20-3.40) 05/15/24 21:34 [place] # (Auto) 0.79 K/uL (0.11-0.59) H 05/15/24 21:34 Eos # (Auto) 0.10 K/uL (0.00-0.50) 05/15/24 21:34 Baso # (Auto) 0.03 K/uL (0.00-0.20) 05/15/24: Immature Gran # (Auto) 0.10 K/uL (0.01-0.20) 05/15/24 21:34 APTT 25 Seconds (21-31) 05/15/24 21:34 PTT Ratio 0.9 05/15/24 21:34 Sodium 139 mmol/L (136-145) 05/15/24 21:34 Potassium 4.0 mmol/L (3.5-5.1) 05/15/24 21:34 Chloride 109 mmol/L (98-107) H 05/15/24 21:34 Carbon Dioxide 26 mmol/L (21-32) 05/15/24:34 Anion Gap 4 (3-11) 05/15/24 21:34 BUN 28 mg/dl (6-23) H 05/15/24 21:34 Creatinine 0.75 mg/dl (0.6-1.4) 05/15/24 21:34 Est Cr Clr Drug Dosing 120.4 ml/min 05/15/24 21:34 eGFR 97.69 05/15/24 21:34 BUN/Creatinine Ratio 37.3 (10-20) H 05/15/24 21:34 Glucose 91 mg/dl (70-99(Fasting)) 05/15/24 21: Calcium 8.8 mg/dl (8.6-10.3) 05/15/24 21:34 Total Bilirubin 0.4 mg/dl (0.2-1.0) 05/15/24 21:34 AST 14 U/L (13-39) 05/15/24 21:34 ALT 14 U/L (7-52) 05/15/24 21:34 Alkaline Phosphatase 64 U/L (34-104) 05/15/24 21:34 Troponin I High Sens 343.1 pg/ml (0-20) H* D 05/15/24 23:13 Total Protein 6.1 gm/dl (6.0-8.3) 05/15/24 21:34 Albumin 3.8 gm/dl (3.4-5.0) 05/15/24 21:34 Globulin 2.3 gm/dl (2.5-4.0) L 05/15/24 21:34 Albumin/Globulin Ratio 1.7 (0.9-2) 05/15/24 21:34 Lipase 34 U/L (11-82) 05/15/24 21:34 Impressions Chest X-Ray 05/15/24 21:33 Exam(s): XR CXR 1 VIEW EXAM: XR Chest, 1 View CLINICAL HISTORY: Chest pain, nonspecific. TECHNIQUE: Frontal view of the chest. COMPARISON: Portable chest single view 05/13/2024 FINDINGS: Lungs: Similar curvilinear changes in the peripheral left lung base. No focal airspace consolidation. The pulmonary vasculature is unremarkable. Pleural space: Unremarkable. No pneumothorax. No large pleural effusion. Heart: The cardiac silhouette is within normal limits, accounting for portable technique. Mediastinum: The mediastinal contours are stable, accounting for slight lordotic technique. No tracheal deviation. Bones/joints: Unremarkable. No acute fracture. IMPRESSION: No acute cardiopulmonary process identified. The previously questioned pulmonary vascular congestion pattern has resolved with slight improved lung expansion, consistent with previous pulmonary vascular crowding. Electronically signed by: Dawit Mays MD 05/15/24 23:26 PM Abdomen/Pelvis CTA 05/15/24 22:31 Exam(s): CTA ABDOMEN + PELVIS With Contrast IV Amt: 118 ml optiray 320 EXAM: CT Angiography Abdomen and Pelvis With Intravenous Contrast CLINICAL HISTORY: Evaluate for potential dissection. TECHNIQUE: Axial computed tomographic angiography images of the abdomen and pelvis with intravenous contrast. CTDI is 27.54 mGy and DLP is 2958.66 mGy-cm. Automated exposure control was utilized for the study. A dose lowering technique was utilized adhering to the principles of ALARA. MIP reconstructed images were created and reviewed. CONTRAST: Patient received 118 ml optiray 320 of IV contrast COMPARISON: No relevant prior studies available. FINDINGS: VASCULATURE: Aorta: No abdominal aortic aneurysm or dissection. No acute periaortic abnormality identified. No precontrast imaging performed. Celiac trunk and mesenteric arteries: No acute findings. No occlusion or significant stenosis. Renal arteries: No acute findings. No occlusion or significant stenosis. Iliac arteries: No acute findings. No occlusion or significant stenosis. Lung bases: Unremarkable. No mass. No consolidation. ABDOMEN: Liver: Hepatic steatosis. Gallbladder and bile ducts: Unremarkable. No calcified stones. No ductal dilation. Pancreas: Unremarkable. No ductal dilation. No mass. Spleen: Heterogeneous enhancement of the spleen is within normal limits given early arterial phase imaging. Adrenals: Unremarkable. No mass. Kidneys and ureters: Unremarkable. No hydronephrosis. No solid mass. Stomach and bowel: The stomach is moderately distended with retained oral contents. No gastric mucosal thickening. No evidence for focal bowel obstruction. Fecal appearing material in nondilated small bowel loops in the right lower quadrant is noted. Mild to moderate stool burden. No appreciable diverticulitis. PELVIS: Appendix: No findings to suggest acute appendicitis. Bladder: Unremarkable. No mass. Reproductive: Unremarkable as visualized. ABDOMEN and PELVIS: Intraperitoneal space: Unremarkable. No significant fluid collection. No free air. Bones/joints: Laminectomy defects from L4-L5. No acute osseous abnormality. No dislocation. Soft tissues: Unremarkable. Lymph nodes: Unremarkable. No enlarged lymph nodes. IMPRESSION: 1. No abdominal aortic aneurysm or dissection. 2. No evidence for focal bowel obstruction. Fecal appearing material in nondilated small bowel loops in the right lower quadrant is nonspecific in appearance and may represent normal variation or enteritis with delayed transit through the small bowel. Mild to moderate stool burden. No appreciable diverticulitis. No free intraperitoneal fluid or pneumoperitoneum. Incidental normal caliber appendix. Electronically signed by: Dawit Mays MD 05/15/24 23:33 PM Chest CTA 05/15/24 22:31 Exam(s): CTA CHEST W/WO Contrast IV Amt: 118 ml optiray 320 EXAM: CT Angiography Chest Without and With Intravenous Contrast CLINICAL HISTORY: Evaluate for potential dissection. TECHNIQUE: Axial computed tomographic angiography images of the chest without and with intravenous contrast using aortic dissection protocol. CTDI is 27. 54 mGy and DLP is 2958 mGy-cm. Automated exposure control was utilized for the study. A dose lowering technique was utilized adhering to the principles of ALARA. MIP reconstructed images were created and reviewed. CONTRAST: Patient received 118 ml optiray 320 of IV contrast COMPARISON: No relevant prior studies available. FINDINGS: Aorta: The ascending aorta is ectatic, with the mid ascending aorta measuring 3.8 x 3.6 cm. The aortic arch and descending aorta are normal in caliber. No dissection or intimal wall abnormality identified on precontrast imaging. No acute periaortic abnormality. Great vessels of aortic arch: No acute findings. No dissection. No arterial occlusion or significant stenosis. Lungs: Dependent curvilinear and ground-glass changes in the posterior aspect of both lungs. No focal airspace consolidation. No mass. Pleural space: Unremarkable. No significant effusion. No pneumothorax. Heart: Cardiac chambers are mildly prominent. At least moderate coronary artery calcification noted in the circumflex and right mid RCA segments. No pericardial effusion. Bones/joints: No acute osseous abnormality. Chronic anterior wedging noted from T8-T11 levels, resulting in accentuated kyphosis. No dislocation. Soft tissues: Unremarkable. Lymph nodes: Unremarkable. No enlarged lymph nodes. IMPRESSION: 1. The ascending aorta is ectatic, with the mid ascending aorta measuring 3.8 x 3.6 cm. The aortic arch and descending aorta are normal in caliber. No dissection or intimal wall abnormality identified on precontrast imaging. No acute periaortic abnormality. 2. Dependent curvilinear and ground-glass presumed atelectatic changes in the posterior aspect of both lungs. No focal airspace consolidation. No pleural effusion or pneumothorax. Electronically signed by: Dawit Mays MD 05/15/24 23:41 PM ECG Additional Comments: EKG per my interpretation with normal sinus rhythm at 72 bpm, normal axis, W[place] = 164, QRS = 92, QTc = 413, apparent LVH, T wave abnormalities present in anterior lateral leads, no ST elevations PG Care Time/CCT Total # of Minutes Spent Total Time Spent with Patient: Total time spent is greater than 50% in coordination of care (as documented) at patient's floor/unit and/or counseling patient: Coding Level of Care Code 97204 INT INP/OBS CARE 3/75MIN Diagnoses Acute non-ST elevation myocardial infarction (NSTEMI) I21.4 CAD (coronary artery disease) I25.10 PAF (paroxysmal atrial fibrillation) I48.0 Benign essential hypertension I10 Atherogenic dyslipidemia E78.5 Polymyalgia rheumatica M35.3 Moderate obstructive sleep apnea G47.33
[2024-05-16] MEDS: MoRPHine SULFATE 2 MG/ML CARP IV STA (01:22)
[2024-05-16] MEDS: ONDANSETRON INJ 2 MG/ML 2 ML VIAL IV STA (01:22)
[2024-05-16] MEDS ORDERED: ONDANSETRON INJ 2 MG/ML 2 ML VIAL IV PRN (02:03)
[2024-05-16 02:33] LABS: Chol HDL Ratio 4.4 (0-5); Magnesium 2.1 mg/dl (1.7-2.4)
[2024-05-16] MEDS: NITROGLYCERIN 2% OINTMENT 30GM TUBE EXT SCH (05:51)
--- NOTE | 2024-05-16 07:29 | Hospitalist Progress Note ---
"Date of Service May 16, 2024 Assessment & Plan (1) Acute non-ST elevation myocardial infarction (NSTEMI): (2) CAD (coronary artery disease): (3) PAF (paroxysmal atrial fibrillation): (4) Benign essential hypertension: (5) Atherogenic dyslipidemia: (6) Polymyalgia rheumatica: (7) Moderate obstructive sleep apnea: Thang Kinney is a 68M w/ PMH Of CAD requiring stenting in 2021 (OM2/RCA), HTN, HLD, PMR on steroids, and pAF (not anticoagulated) who presented with severe chest discomfort for 1 hour and was admitted for ACS evaluation and treatment. NSTEMI | ACS Hx of CAD, HTN, HLD - Hx of CAD w/ VALENTIN placement in 2021 - Troponin rising, now 1400s - Repeat EKG w/ anterior T wave inversions - Patient remains asymptomatic w/ morphine and nitropaste - Patient hemodynamically stable on room air - Echo 05/13/24 w/o wall motion abnormalities, normal EF - 05/15: A1c 5.2/ Total Cholesterol 214, LDL 94, HDL 41 - No home aspirin/statin use, continue ASA 81 mg PO daily - Cardiology consulted on admission, contacted directly given rising troponin and T wave inversions Appreciate recommendations Anticipating PCI, remain NPO - Continue heparin drip - Continue Morphine/Nitropaste with goal of 0 pain - Repeat EKGfor rising troponin or increased CP - Trend troponin pAFib - Reporting low burden, no active anticoagulation - CHADsVASC 3 (age, HTN, CAD, no DM) - Anticoagulation recommended for stroke risk reduction HTN - No home medications - Stable inpatient, continu e to follow - Continue Nitropaste Elevated Total Cholesterol - Total Cholesterol 214, LDL 94, HDL 41 Ongoing discussion of statin therapy given CAD/ACS Polymyalgia rheumatica Continue prednisone 50 mg p.o. daily RITA - Not on CPAP Code: Full DVT Ppx: Heparin gtt FENGI: No IVF, NPO for procedure Dispo: Pending Cardio evaluation, appreciate recs Admission and Anticipated Discharge Date Admission Date: May 16, 2024 Supervising Physician Co-Signing Physician Notes I personally examined the patient and verified merchant points of history and exam, discussed case, and agree with decision making and plan documented by Dr. Soriano. Patient taken to [facility] for NSTEMI today, s/p VALENTIN to RCA. Patient to continue DAPT with goal of guideline directed therapy per cardiology. Vital signs post catheterization stable, advancing diet. Sonia Kinney was resting comfortably in bed upon arrival. He noted that he presented for 1 hour of central chest pain with some non-specific jaw pain. He notes that he has been asymptomatic since the application of nitropaste last evening. He denies headache, dyspnea, or nausea. He has not experienced any chest pain or dyspnea on exertion over the last two weeks and denies orthopnea, claudication, or lower extremity edema. Patient has a history of CAD requiring catheterization/stenting in 2021, he notes that he is no longer on Aspirin or Plavix and does not take a statin. Physical Exam Physical Exam: General: Pleasant, NAD, non-toxic, AA&O x 4 Skin: No rashes, lesions, or erythema. Nitropaste intact. HEENT: NC/AT, no LAD, no JVD Heart: +S1/S2, regular, no m/r/g, no carotid bruit Lungs: CTAB, nonlabored, no wheezing/rhonchi/rales Abd: +BS, soft, NT/ND, no masses or HSM Ext: Distal pulses 2+, no peripheral edema Results & Data Results & Data Vital Signs (Past 12 Hours) Vital Signs Temp Pulse Pulse Resp BP BP Pulse Ox 05/16/24 04:05 36.5 C 70 18 120/78 97 05/16/24 02:07 36.3 C L 62 18 147/87 H 94 05/16/24 01:47 65 05/16/24 01:30 05/16/24 01:00 74 16 125/82 95 03/21/25 00:00 64 18 120/79 97 05/15/24 23:13 72 22 143/98 H 96 05/15/24 21:35 72 20 125/73 96 05/15/24 21:34 96 05/15/24 21:29 64 05/15/24 21:26 37.4 C 65 15 125/73 95 O2 Del Method O2 Flow Rate 05/16/24 04:05 Room Air 05/16/24 02:07 Room Air 05/16/24 01:47 05/16/24 01:30 Room Air 05/16/24 01:00 Room Air 05/16/24 00:00 05/15/24 23:13 Room Air 05/15/24 21:35 05/15/24 21:34 Nasal Cannula 2 05/15/24 21:29 05/15/24 21:26 Room Air Resident Activity Tracking Resident Involvement: Resident Care Provided Care Provided: Adult Hospital Medicine"
[2024-05-16 07:43] LABS: ANTI-Xa, UFH(UnfractionatedHep 0.49 IU/ml (0.3-0.7)
[2024-05-16 08:15] LABS: Estimated Average Glucose 103 mg/dl; Hemoglobin A1C 5.2 % (4.5-5.6)
[2024-05-16] MEDS: PANTOprazole 40 MG TAB PO SCH (08:53)
[2024-05-16] MEDS: predniSONE 5 MG TAB PO SCH (08:53)
[2024-05-16] MEDS: ASPIRIN 81 MG ECTAB PO SCH (08:54)
--- NOTE | 2024-05-16 09:40 | Cardiology Consultation ---
Date of Consultation May 16, 2024 Assessment & Plan (1) Acute non-ST elevation myocardial infarction (NSTEMI): Patient has not been taking previously recommended medications including the beta-dariela and statin. He has a history of prior MA and stenting and I do not know what residual disease was present at that time. He has now been evaluated for chest pain which sounds fairly typical for unstable angina twice this month. He also has rising troponin which is more concerning. At this point, I think he would be best served by proceeding directly to cardiac catheterization suite so we can evaluate his coronaries and determine if he has progressive coronary disease, severe coronary disease that would be served by revascularization percutaneously or surgically. Further recommendations pending results of cardiac catheterization. (2) CAD (coronary artery disease): I am going to try to get him to agree to follow guideline directed medical therapy for secondary prevention. This would include the low-dose aspirin, high intensity statin therapy, beta-dariela, plus or minus RAOUL inhibitor/ARB. (3) PAF (paroxysmal atrial fibrillation): Patient has a 1% burden of A-fib. He has declined anticoagulation and told me that he would look into the Watchman device but he never got back to me on that. Will talk about this further as an outpatient but I do think he needs either to try the anticoagulation (my preference) or to discuss watchman implant with someone who does the procedure. (4) Atherogenic dyslipidemia: Patient is high risk. High intensity statin therapy is recommended. He discontinued previously because of allover body pain but now that it is known he has PMR it may just be that his symptoms were from the PMR and not from the statin. He said he is willing to retry the statin at this point and I think if we find that he has had progressive coronary disease he will be even more motivated to do so. (5) Benign essential hypertension: Mostly the blood pressure is at target or slightly above target. At minimum he should be on a beta-dariela even at low-dose just to keep his blood pressure under good control as well as reduce morbidity mortality with coronary artery di sease. History of Present Illness Reason for Consultation: Chest pain, elevated troponin Attending Physician: Tila Franklin, History of Present Illness 68-year-old gentleman known to me from the outpatient clinic. He has a remote history of myocardial infarction and stenting of the RCA performed at an outside facility. In addition to coronary disease I have followed him for paroxysmal atrial fibrillation, hypertension, dyslipidemia, and severe obstructive sleep apnea. In general, he has been reluctant to follow medical advice and take recommended medications. However, he was recently evaluated in this facility for chest pain. He had an echocardiogram at that time which was essentially unchanged from prior although slightly more valvular heart disease but no change in EF or wall motion. He was anxious to leave and at that time I felt it would be reasonable for him to see me in the office so we can schedule stress testing and discuss his medications. We previously had discussed a Watchman device for CVA prophylaxis and he did not want to take any anticoagulation. Fortunately his A-fib burden was low. However, patient has had recurrence of chest tightness which he describes as crushing substernal chest pain with radiation to both upper extremities. He therefore returned to the emergency department and has now been admitted for further workup and management. He is cardiac troponin is trending upwards. Again, his EKG did not show any ischemic changes. Patient has also been relatively recently diagnosed with PMR and was placed on steroids. He said that since his diagnosis he has not been feeling well. This was rather generalized and nonspecific to his cardiac health. He denies any syncope, near syncope, orthopnea, PND, racing heartbeat, palpitations, or edema. We discussed my recommendation for definitive evaluation by coronary angiography. The risk, benefits, and alternatives were discussed in detail with the patient. Risks include but are not limited to; , stroke, MA, adverse drug reaction, infection, bleed, and need for emergent surgery. Lack of onsite cardiac surgical backup and plan for air evacuation in the event of emergency was discussed. Patient's questions were answered in full. He voiced understanding and wished to proceed with cardiac cath. Allergies Allergy/AdvReac Type Severity Reaction Status Date / Time No Known Allergies Allergy Verified 05/13/24 02:23 Home Medications Medication Instructions Recorded Confirmed Type ibuprofen 200 mg tablet (Advil) 200 mg PO Q6H PRN Pain 03/06/23 05/16/24 History acetaminophen 500 mg tablet 500 mg PO Q6H PRN Pain 05/13/24 05/16/24 History (Tylenol Extra Strength) aspirin 325 mg tablet 325 mg PO DIRECTED PRN Pain 05/13/24 05/16/24 History aspirin 81 mg tablet,delayed 81 mg PO DAILY #0 tabs 05/13/24 05/16/24 Rx release (Adult Low Dose Aspirin) omeprazole 40 mg capsule,delayed 40 mg PO DAILY WHEN TAKES 05/13/24 05/16/24 Rx release PREDNISONE/UPSET STOMACH #0 caps prednisone 5 mg tablet 15 mg PO DAILY 05/13/24 05/16/24 History tirzepatide (weight loss) 15 15 mg subcut WK 05/13/24 05/16/24 History mg/0.5 mL subcutaneous pen injector (Zepbound) Patient History Medical History History of inferior wall myocardial infarction Insufficient sleep syndrome Hypersomnia Left shoulder pain Chronic knee pain Class 2 obesity due to excess calories with body mass index (BMI) of 38.0 to 38.9 in adult Abdominal pain COVID Nausea and vomiting after administration of anesthetic agent Surgical History History of heart artery stent History of removal of cyst off back History of arthroscopy of right shoulder History of arthroscopy of right knee x2 History of arthroscopy of left knee x2 History of repair of anterior cruciate ligament of left knee History of colonoscopy History of esophagogastroduodenoscopy (EGD) History of wisdom tooth extraction Status post correction of deviated nasal septum Status post myringotomy with tube placement of both ears Family History Grandmother (Paternal) Family history of diabetes mellitus Other No family history of adverse response to anesthesia Denies family history of Ovarian cancer Prostate cancer Myocardial infarction Breast cancer Colorectal cancer Social History Smoking Status: Never smoker Second Hand Exposure: No; Do You Dip or Chew Tobacco: No; Tobacco Cessation Education Requested by Patient: No Hx Alcohol Use: Yes Alcohol type: beer Hx Substance Use: No Preferred Language: [place] Citizen Communication Ability: Effective Visual Impairment: No Limitations Hearing Ability: Normal Veterinary Surgery Technologist Required: No Beliefs That Will Affect Care: None marital status: Single Current Living Situation: Alone Current Living Situation Comment: lives at home with two cats current occupational status: employed current occupation: Researcher Other Information That Helps Us Care for You: No Feels Safe at Home: Yes Safety Concerns: Feels Safe At This Time Diet: regular Dental Care, Regularly: Yes Physical Activity Frequency: 1-2 Times per Week Seatbelt Use: sometimes Sunscreen Use: No Assistive Devices: Glasses Review of Systems Review of Systems: Negative except as per HPI Physical Exam Constitutional: WD/WN, vitals as above Eyes: Extraocular muscles intact. Sclera are anicteric. ENMT: [place] pink moist and intact Neck: No JVD or bruits Respiratory: Clear to auscultation bilaterally. No wheezing, rhonchi, or rales. Cardiovascular: Regular rate and rhythm. No gallops, rubs, or murmurs. Musculoskeletal: no cyanosis or clubbing, extremities motor strength 5/5 (2+ radial pulse) Neurologic: Cognition is intact. Speech is fluent. No focal deficits. Psychiatric: A+Ox3, euthymic affect Results & Data Vital Signs (Past 12 Hours) Vital Signs Temp Pulse Pulse Resp BP Pulse Ox O2 Del Method 05/16/24 07:29 36.4 C L 67 18 134/80 96 Room Air 05/16/24 04:05 36.5 C 70 18 120/78 97 Room Air 05/16/24 02:07 36.3 C L 62 18 147/87 H 94 Room Air 05/16/24 01:47 65 05/16/24 01:30 Room Air 05/16/24 01:00 74 16 125/82 95 Room Air 05/16/24 00:00 64 18 120/79 97 05/15/24 23:13 72 22 143/98 H 96 Room Air 05/15/24 21:35 72 20 125/73 96 05/15/24 21:34 96 Nasal Cannula O2 Flow Rate 05/16/24 07:29 05/16/24 04:05 05/16/24 02:07 05/16/24 01:47 05/16/24 01:30 05/16/24 01:00 05/16/24 00:00 05/15/24 23:13 05/15/24 21:35 05/15/24 21:34 2 PG Care Time/CCT Total # of Minutes Spent Total Time Spent with Patient: Total time spent is greater than 50% in coordination of care (as documented) at patient's floor/unit and/or counseling patient: Coding Level of Care Code 98284 IN/OBS CONSULT LVL 4,60M Diagnoses Acute non-ST elevation myocardial infarction (NSTEMI) I21.4 CAD (coronary artery disease) I25.10 PAF (paroxysmal atrial fibrillation) I48.0 Atherogenic dyslipidemia E78.5 Benign essential hypertension I10
[2024-05-16] MEDS: ACETAMINOPHEN 500 MG TAB PO PRN (10:48)
--- NOTE | 2024-05-16 13:03 | Pre Anesthesia Assessment ---
Date of Service May 16, 2024 Pre Sedation Assessment Vital Signs Temp Pulse Pulse Resp BP BP Pulse Ox 05/16/24 10:54 36.6 C 68 20 114/76 94 05/16/24 10:06 36.8 C 76 18 144/83 H 95 05/16/24 08:00 76 05/16/24 08:00 05/16/24 07:29 36.4 C L 67 18 134/80 96 05/16/24 04:05 36.5 C 70 18 120/78 97 05/16/24 02:07 36.3 C L 62 18 147/87 H 94 05/16/24 01:47 65 05/16/24 01:30 05/16/24 01:00 74 16 125/82 95 05/16/24 00:00 64 18 120/79 97 05/15/24 23:13 72 22 143/98 H 96 05/15/24 21:35 72 20 125/73 96 05/15/24 21:34 96 05/15/24 21:29 64 05/15/24 21:26 37.4 C 65 15 125/73 95 O2 Del Method O2 Flow Rate 05/16/24 10:54 Room Air 05/16/24 10:06 Room Air 05/16/24 08:00 05/16/24 08:00 Room Air 05/16/24 07:29 Room Air 05/16/24 04:05 Room Air 05/16/24 02:07 Room Air 05/16/24 01:47 05/16/24 01:30 Room Air 05/16/24 01:00 Room Air 05/16/24 00:00 05/15/24 23:13 Room Air 05/15/24 21:35 05/15/24 21:34 Nasal Cannula 2 05/15/24 21:29 05/15/24 21:26 Room Air Cardiovascular RRR, no murmur, no edema Respiratory normal respiratory effort, lungs clear to auscultation Pre-Sedation Airway Assessment Smoking Status: Never smoker mallampati 3 ASA 4 Notes The planned sedation has been discussed with the patient. Informed Consent was obtained. I have identified the patient, determined the appropriateness of sedation and have assessed the patient immediately prior to the procedure. All medicine(s) and interventions are by my order. [facility] Procedure Codes (Charges) Indication for Procedure Indication for procedure: NSTEMI
[2024-05-16] MEDS: niCARdipine 2,000 MCG/20 ML SYR ONE (14:13)
[2024-05-16] MEDS: NITROGLYCERIN/D5W 100MCG/ML 20ML SYR ONE (14:13)
[2024-05-16] MEDS: MIDAZOLAM HCL 1 MG/ML 2ML VIAL ONE (14:20)
[2024-05-16] MEDS: OPTIRAY 350 ONE (14:57)
[2024-05-16] MEDS: fentaNYL citrate PF 100 MCG/2 ML VIAL ONE (14:57)
[2024-05-16] MEDS: HEPARIN (PORCINE) 1000 UNIT/ML 10 ML (CATH LAB USE ONLY) ONE (14:57)
[2024-05-16] MEDS: TICAGRELOR 90 MG TAB ONE (14:58)
--- NOTE | 2024-05-16 15:07 | Post Anesthesia Assessment ---
Date of Service May 16, 2024 Post Sedation Assessment Vital Signs Temp Pulse Pulse Resp BP BP Pulse Ox 05/16/24 10:54 36.6 C 68 20 114/76 94 05/16/24 10:06 36.8 C 76 18 144/83 H 95 05/16/24 08:00 76 05/16/24 08:00 05/16/24 07:29 36.4 C L 67 18 134/80 96 05/16/24 04:05 36.5 C 70 18 120/78 97 05/16/24 02:07 36.3 C L 62 18 147/87 H 94 05/16/24 01:47 65 05/16/24 01:30 05/16/24 01:00 74 16 125/82 95 05/16/24 00:00 64 18 120/79 97 05/15/24 23:13 72 22 143/98 H 96 05/15/24 21:35 72 20 125/73 96 05/15/24 21:34 96 05/15/24 21:29 64 05/15/24 21:26 37.4 C 65 15 125/73 95 O2 Del Method O2 Flow Rate 05/16/24 10:54 Room Air 05/16/24 10:06 Room Air 05/16/24 08:00 05/16/24 08:00 Room Air 05/16/24 07:29 Room Air 05/16/24 04:05 Room Air 05/16/24 02:07 Room Air 05/16/24 01:47 05/16/24 01:30 Room Air 05/16/24 01:00 Room Air 05/16/24 00:00 05/15/24 23:13 Room Air 05/15/24 21:35 05/15/24 21:34 Nasal Cannula 2 05/15/24 21:29 05/15/24 21:26 Room Air Recovery Score Activity: Moves 4 extremities Respiration: Deep Breath/Cough Circulation: +/-20% PreAnes Value Consciousness: Fully Awake Oxygen Saturation: > 92% On Room Air Discharge Sedation Level of Care: Fast Track Phase II Post Sedation Plan On clinical assessment, the patient appears to have tolerated the sedation without complications. Patient is recovering as anticipated. Patient will continue to be monitored by nursing and may be discharged when sedation discharge criteria are met per below protocol. Upon Completions of procedure up to 15 minutes continue every 5 minute vital signs and the P.A.R. score; then discharge to a Phase I or Fast Track to Phase II per the following guidelines: * Discharge Patient to appropriate Phase II area if PAR is 8 or greater or return to pre- procedure baseline. The post - procedure orders will be as directed. * If PAR score is less than 8 or not return to pre-procedure baseline then patient will follow Phase I monitoring till PAR is reached for Phase II. The Phase I may be done in procedure room or may call to secure a Phase I area. * If naloxone or flumazenil are used for reversal, hold in Phase I for continued monitoring from when last reversal dose was given for a minimum of 60 minutes or longer pending the nurse and/or physician discretion of patient condition before discharge to Phase II. Please call the Sedation Physician to re-evaluate and complete post-note for discharge to Phase II area. Do NOT discharge from procedure sedation or Phase 1 until post- sedation evaluation note is complete by procedure /sedation MD Sedation Discharge Instructions to be given to the patient at discharge to home. [facility] Procedure Codes (Charges) Indication for Procedure Indication for procedure: NSTEMI
[2024-05-16] MEDS: TICAGRELOR 90 MG TAB PO ONE (18:16)
--- NOTE | 2024-05-16 18:21 | Cardiac Catheterization ---
ACC Data: Director Of Cardiopulmonary Services Cardiac Status Clinical evaluation leading to the procedure CAD Presenation: Non STEMI Anginal Classification: CCS IV Heart Failure: No Cardiogenic Shock within 24 Hours: No Cardiac Arrest within 24 Hours: No Imaging Studies Past 6 Months: No Stress Studies Past 6 Months: No Coronary Anatomy Dominant: Right Left Main (% Stenosis): Normal LAD (% Stenosis): Mid (40%) D1 (% Stenosis): Proximal (50 to 60%) Circumflex (% Stenosis): Mid (20% in-stent restenosis) OM1 (% Stenosis): Normal OM2 (% Stenosis): Normal L PL1 (% Stenosis): Normal L PL2 (% Stenosis): Normal RCA (% Stenosis): Distal (99%) R PDA (% Stenosis): Normal R PL1 (% Stenosis): Normal Diagnostic Physicians Name: Fuad Thompson MD, PhD Closure Device Percutaneous Entry Location: Radial and femoral Recommendations: Medical Therapy and/or Counseling and PCI without planned CABG PCI Indication: PCI for high risk Non-NICHOLE Lesion Segment Name: Distal RCA Culprit Artery: Yes Stenosis Prior to Rx (%): 99% Chronic Total Occlusion: No Pre-Procedure EMILIANO Flow: 1 Previously Treated Lesion: No Lesion Complexity: Non-High/Non-C Lesion Length (mm): 14 Thrombus Present: No Bifurcation Lesion: No Guidewire Across Lesion: Yes Intraprocedure Events Significant Disection: No Perforation: No Cardiac Cath Procedure Full Procedure Date May 16, 2024 Pre-Procedure Diagnosis Pre-Procedure Diagnosis: Non STEMI AUC Score AUC Score: 08 Post-Procedure Diagnosis Post-Procedure Diagnosis: Severe CAD Procedure(s) Performed Procedure(s) Performed: Coronary Angiography, Drug Eluting Stent and Ultrasound Guided Vascular Access Coupon And Bond Collection Clerk Fuad Thompson MD, PhD Estimated Blood Loss Estimated Blood Loss: 10 cc Medication(s) Medication(s): Fentanyl, Heparin, Lidocaine 1%, Nicardipine, Nitroglycerin and Versed Summary of Findings Brief description: Patient was brought to the cardiac catheterization suite where he was shaved and prepped in a sterile fashion. Sedated using IV Versed and fentanyl. Soft tissues of the right wrist were anesthetized using 2 mL of 1% Xylocaine. The right radial artery was accessed using a modified Seldinger technique and a 6 Romanian radial artery glide sheath was placed. Patient was provided anticoagulation with IV heparin and antispasmodics including nicardipine and nitroglycerin. All catheters were advanced and exchanged over a 0.035 J-tip wire. However, because of the angle that his innominate comes off of his aortic arch we were unable to get the catheter delivered to the ascending aorta despite the use of different wires, etc. He told me that they had difficulty when they tried from the wrist previously. Therefore, we abandon further attempts from the radial artery approach. Soft tissue the right groin were anesthetized using 10 mL of 1% Xylocaine. Using the ultrasound for guidance (image saved), the right femoral artery was accessed and a 5 Romanian femoral artery sheath was placed. ACT was checked. Left coronary angiography was performed in orthogonal views with a 5 Romanian JL 4 diagnostic catheter. Right coronary angiography was performed in orthogonal views with a 5 Romanian JR4 diagnostic catheter. Decision was made to perform PCI of the RCA. Diagnostic catheters were removed. The 5 Romanian femoral artery sheath was exchanged over the wire for a 6 Romanian femoral artery sheath. A 6 Romanian JR4 guide catheter was advanced and used to engage the right coronary. A BMW universal guidewire was advanced through the guide catheter and under fluoroscopic guidance was advanced beyond the lesion to the distal RCA. Patient was provided IV heparin. ACT was checked intermittently throughout the case and additional heparin was provided as needed to maintain therapeutic anticoagulation. Lesion was predilated with a 3.0 x 12 mm trek balloon with 3 inflations at 14, 14, and 20 smiley. Balloon removed and angiography performed. Additional predilatation with a 3.25 x 15 mm trek balloon at 14 smiley x 2. Balloon removed. Implantation of a 3.5 x 18 mm [place] drug-eluting stent initially at 12 smiley. Second inflation up to 15 smiley. Stent balloon was removed. Colorist Photography angiography performed. The guidewire was removed and final angiographic evaluation was performed. The guide catheter was then removed over the J-wire. Limited femoral artery angiography was performed to evaluate for closure. Findings were favorable, therefore, the femoral artery sheath was exchanged over the Amplatz wire for a 6 Romanian Angio-Seal closure device. This was deployed in the recommended fashion. We obtained immediate hemostasis and the patient remained hemodynamically stable. He was returned to the recovery area. This ended the case. Coronary angiography findings: [id number] but short bifurcating almost immediately in the LAD and circumflex. No disease. [id number]. Proximally no disease and it gives a large branching D1. This has proximal 50 to 60% stenosis. Mid LAD has diffuse less than 40% stenosis and distally there is mild luminal irregularities. LCx-this is large caliber and nondominant. Travels in the AV groove. Circumflex gives a high rising medium to large caliber OM1 followed by a large OM 2, as a large posterolateral branch 1, and a small posterolateral branch to as it terminates. There is a previously placed stent in the mid AV groove vessel with less than 20% stenosis. The remainder of the circumflex and its branches have no significant disease. RCA-this is very large caliber and dominant. Proximally there is tortuosity, and diffuse mild luminal irregularities. Then, distally just before the bifurcation into the PDA and posterolateral branches there is a 99% stenosis. EMILIANO I flow after the stenosis. No observable thrombus. This is culprit for non-ST elevation ME. PCI of distal RCA-there is 0% residual stenosis post PCI EMILIANO-3 flow post PCI No evidence of dissection or perforation post PCI Summary: 1. Severe distal RCA stenosis is the culprit for his non-ST elevation ME. He has mild in-stent restenosis in prior stent and moderate residual disease in the diagonal branch. 2. Successful PCI with implantation of a large caliber drug-eluting stent to the distal RCA. 3. Dual antiplatelet therapy with aspirin 81 mg daily and Brilinta 90 mg p.o. twice daily for 1 to 2 years. 4. Guideline directed medical therapy for secondary prevention of coronary disease to include; low-dose aspirin, high intensity statin therapy, beta- dariela, plus or minus RAOUL inhibitor/ARB. Hemodynamics Rest Ao:: 104/70 mmHg Final Ao: 126/71 mm LV: Not performed Recommendations Recommendations: Medical Therapy and/or Counseling and PCI without planned CABG Radiation Exposure (mGy) 2809 mGy, fluoroscopy time 13.1 minutes Contrast (mls) 260 cc Anesthesia 2 mg Versed, 75 mcg fentanyl IV. Start time 1413, end time 1505 Procedural Complication(s) None Disposition Director Of Cardiopulmonary Services Holding/Recovery I attest to the content of the Intraoperative Record and any orders documented therein. Any exceptions are noted below. [facility] Card Cath Procedure Codes Cardiac Catheterization Procedure 1: Cardiovascular Cath Procedures: 02601 Coronaries Therapeutic Services & Ancillary Procedure 1: Cardiovascular Tx and Anc Procedures: 83852 Ultrasonic Guidance Vascular Access Moderate Sedation Procedure 1: Sedation/Anesthesia: 03552 Mod Sedation by the same physician;Init15 Min Child Age 5 & Up (Initial 15 minutes, start time 1413) Procedure 2: Sedation/Anesthesia: 67832 Mod Sedation by the same physician; Ea [id number] Minutes (Additional 37 minutes, end time 1505) Stenting Procedure 1: Cardiovascular Stent Procedures: 37737 Perc transluminal revascularization of acute sub/total occl, aMI (RCA) PG Care Time/CCT Total # of Minutes Spent Total Time Spent with Patient: Total time spent is greater than 50% in coordination of care (as documented) at patient's floor/unit and/or counseling patient:
[2024-05-16] MEDS: METOPROLOL TARTRATE 25 MG TAB PO SCH (20:02)
--- NOTE | 2024-05-16 20:26 | Electrocardiogram Report ---
Test Reason : Blood Pressure : */* mmHG Vent. Rate : 66 BPM Atrial Rate : 66 BPM P-R Int : 140 ms QRS Dur : 88 ms QT Int : 392 ms P-R-T Axes : 44 46 261 degrees QTcB Int : 410 ms Normal sinus rhythm Abnormal ECG When compared with ECG of 13-May-2024 01:10, Premature ventricular complexes are no longer Present Non-specific change in ST segment in Inferior leads T wave inversion more evident in Inferior leads Confirmed by Henry Lares ([id number]) on 05/16/2024 8:26:13 PM Referred By: REFERRED SELF Confirmed By: Henry Lares
--- NOTE | 2024-05-16 20:27 | Electrocardiogram Report ---
Test Reason : Blood Pressure : */* mmHG Vent. Rate : 72 BPM Atrial Rate : 72 BPM P-R Int : 164 ms QRS Dur : 92 ms QT Int : 378 ms P-R-T Axes : 40 11 260 degrees QTcB Int : 413 ms Normal sinus rhythm Minimal voltage criteria for LVH, may be normal variant Inferior infarct (cited on or before 15-May-2024) T wave abnormality, consider anterolateral ischemia Abnormal ECG When compared with ECG of 15-May-2024 21:29, (unconfirmed) No significant change was found Confirmed by Henry Lares ([id number]) on 05/16/2024 8:27:30 PM Referred By: REFERRED SELF Confirmed By: Henry Lares
--- NOTE | 2024-05-16 20:34 | Electrocardiogram Report ---
Test Reason : Blood Pressure : */* mmHG Vent. Rate : 71 BPM Atrial Rate : 71 BPM P-R Int : 176 ms QRS Dur : 88 ms QT Int : 382 ms P-R-T Axes : 44 10 -74 degrees QTcB Int : 415 ms Normal sinus rhythm Minimal voltage criteria for LVH, may be normal variant T wave abnormality, consider anterolateral ischemia Abnormal ECG When compared with ECG of 15-May-2024 22:52, (unconfirmed) No significant change was found Confirmed by Henry Lares ([id number]) on 05/16/2024 8:34:01 PM Referred By: REFERRED SELF Confirmed By: Henry Lares
--- NOTE | 2024-05-16 20:46 | Electrocardiogram Report ---
Test Reason : Blood Pressure : */* mmHG Vent. Rate : 68 BPM Atrial Rate : 68 BPM P-R Int : 176 ms QRS Dur : 84 ms QT Int : 384 ms P-R-T Axes : 47 34 -63 degrees QTcB Int : 408 ms Normal sinus rhythm T wave abnormality, consider anterolateral ischemia Abnormal ECG When compared with ECG of 16-May-2024 08:13, (unconfirmed) Minimal criteria for Inferior infarct are now Present Confirmed by Henry Lares ([id number]) on 05/16/2024 8:46:26 PM Referred By: REFERRED SELF Confirmed By: Henry Lares
[2024-05-17 06:37] LABS: Basophils # (auto) 0.04 K/uL (0.00-0.20); Basophils % (auto) 0.4 %; Eosinophils # (auto) 0.16 K/uL (0.00-0.50); Eosinophils % (auto) 1.7 %; Hematocrit (blood only) 44.6 % (42.0-52.0); Hemoglobin 15.1 g/dl (14.0-18.0); Immature Granulocytes # (auto) 0.08 K/uL (0.01-0.20); Immature Granulocytes % (auto) 0.8 %; Lymphocytes # (auto) 1.81 K/uL (1.20-3.40); Lymphocytes % (auto) 18.8 %; Mean Corpuscular Hemoglobin 28.9 pg (25.0-34.0); Mean Corpuscular Hgb Conc 33.9 g/dL (32.0-36.0); Mean Corpuscular Volume 85.4 fL (80.0-100.0); Mean Platelet Volume 9.7 fL (9.4-12.4); Monocytes # (auto) 0.92 K/uL (0.11-0.59); Monocytes % (auto) 9.6 %; Neutrophils % (auto) 68.7 %; Platelet Count 235 K/uL (130-400); RDW Coefficient of Variation 13.9 % (11.5-14.5); RDW Standard Deviation 43.3 fL (36.4-46.3); Red Blood Count 5.22 M/uL (4.70-6.10); White Blood Count 9.61 K/ul (4.8-10.8)
[2024-05-17 07:08] VITALS: RESP 18; TEMP 97.7; O2SAT 96
[2024-05-17 07:08] LABS: ANTI-Xa, UFH(UnfractionatedHep < 0.10 IU/ml (0.3-0.7)
--- NOTE | 2024-05-17 07:33 | Hospitalist Progress Note ---
"Date of Service May 17, 2024 Assessment & Plan (1) Acute non-ST elevation myocardial infarction (NSTEMI): (2) CAD (coronary artery disease): (3) PAF (paroxysmal atrial fibrillation): (4) Benign essential hypertension: (5) Atherogenic dyslipidemia: (6) Polymyalgia rheumatica: (7) Moderate obstructive sleep apnea: Thang Kinney is a 68M w/ PMH Of CAD requiring stenting in 2021 (OM2/RCA), HTN, HLD, PMR on steroids, and pAF (not anticoagulated) who presented with severe chest discomfort for 1 hour and was admitted for ACS evaluation and treatment. NSTEMI | ACS Hx of CAD, HTN, HLD - Hx of CAD w/ VALENTIN placement in 2021 - Troponin rising, now 1400s - Repeat EKG w/ anterior T wave inversions - Patient remains asymptomatic w/ morphine and nitropaste - Patient hemodynamically stable on room air - Echo 05/13/24 w/o wall motion abnormalities, normal EF - 05/15: A1c 5.2/ Total Cholesterol 214, LDL 94, HDL 41 - No home aspirin/statin use, continue ASA 81 mg PO daily - Cardiology consulted on admission, contacted directly given rising troponin and T wave inversions Appreciate recommendations Anticipating PCI, remain NPO - Continue heparin drip - Continue Morphine/Nitropaste with goal of 0 pain - Repeat EKGfor rising troponin or increased CP - Trend troponin pAFib - Reporting low burden, no active anticoagulation - CHADsVASC 3 (age, HTN, CAD, no DM) - Anticoagulation recommended for stroke risk reduction HTN - No home medications - Stable inpatient, continu e to follow - Continue Nitropaste Elevated Total Cholesterol - Total Cholesterol 214, LDL 94, HDL 41 Ongoing discussion of statin therapy given CAD/ACS Polymyalgia rheumatica Continue prednisone 50 mg p.o. daily RITA - Not on CPAP Code: Full DVT Ppx: Heparin gtt FENGI: No IVF, NPO for procedure Dispo: Pending Cardio evaluation, appreciate recs Admission and Anticipated Discharge Date Admission Date: May 16, 2024 Sonia Kinney was resting comfortably in bed upon arrival. He noted that he presented for 1 hour of central chest pain with some non-specific jaw pain. He notes that he has been asymptomatic since the application of nitropaste last evening. He denies headache, dyspnea, or nausea. He has not experienced any chest pain or dyspnea on exertion over the last two weeks and denies orthopnea, claudication, or lower extremity edema. Patient has a history of CAD requiring catheterization/stenting in 2021, he notes that he is no longer on Aspirin or Plavix and does not take a statin. Physical Exam Physical Exam: General: Pleasant, NAD, non-toxic, AA&O x 4 Skin: No rashes, lesions, or erythema. Nitropaste intact. HEENT: NC/AT, no LAD, no JVD Heart: +S1/S2, regular, no m/r/g, no carotid bruit Lungs: CTAB, nonlabored, no wheezing/rhonchi/rales Abd: +BS, soft, NT/ND, no masses or HSM Ext: Distal pulses 2+, no peripheral edema Results & Data Results & Data Vital Signs (Past 12 Hours) Vital Signs Temp Pulse Pulse Resp BP BP Pulse Ox 05/17/24 07:07 36.5 C 93 H 18 116/81 96 05/17/24 04:13 36.4 C L 87 19 117/71 93 05/16/24 23:37 78 05/16/24 22:30 76 05/16/24 22:02 36.7 C 88 18 130/81 95 05/16/24 20:00 O2 Del Method 05/17/24 07:07 Room Air 05/17/24 04:13 Room Air 05/16/24 23:37 05/16/24 22:30 05/16/24 22:02 Room Air 05/16/24 20:00 Room Air Resident Activity Tracking Resident Involvement: Resident Care Provided Care Provided: Adult [facility]"
[2024-05-17 08:12] LABS: BUN Creatinine Ratio 20.7 (10-20); Calcium 9.1 mg/dl (8.6-10.3); Chol HDL Ratio 4.3 (0-5); Creatinine Clr Calc Pharmacy 105.9 ml/min
[2024-05-17] MEDS: ROSUVASTATIN CALCIUM 20 MG TAB PO SCH (09:00)
[2024-05-17] MEDS ORDERED: TICAGRELOR 90 MG TAB PO SCH (09:00)
[2024-05-17] MEDS: CLOPIDOGREL BISULFATE 300 MG TAB PO ONE (10:52)
--- NOTE | 2024-05-17 11:11 | Cardiology Progress Note ---
Date of Service May 17, 2024 Assessment & Plan (1) Acute non-ST elevation myocardial infarction (NSTEMI): Plan: Doing well status post distal RCA stenting yesterday. Okay for discharge on aspirin, clopidogrel, metoprolol, and rosuvastatin. (2) PAF (paroxysmal atrial fibrillation): Plan: Rhythm remains sinus overnight. Continue beta-dariela. Patient has declined anticoagulation in the past. (3) CAD (coronary artery disease): Plan: No remaining occlusive CAD post stenting. Does have borderline LAD stenosis. Continue to address vascular risk factors. (4) Benign essential hypertension: Plan: BP normotensive on current vasoactive regimen. Admission and Anticipated Discharge Date Admission Date: May 16, 2024 Subjective Uneventful night. Doing well, no somatic complaints. Denies chest pain, dyspnea, or palpitations. Telemetry showed sinus rhythm in the 60 bpm range (occasionally as low as 40 bpm overnight). No dysrhythmias. Physical Exam Physical Exam: No distress. BP normotensive. Pulse 80 bpm and regular. Respirations 18 unlabored. Skin: no ecchymoses or generalized lesions. HEENT: unremarkable. Neck: JVP at the clavicle at 90 degrees, no carotid bruits. Lungs: clear. Cardiac: regular rhythm, normal S1-2, no murmur. Abdomen: benign. Extremities: Right wrist access site benign. Good distal circulation right hand. No edema, pulses intact. Neurologic: normal affect and conversation, nonfocal. Results & Data Laboratory Results Normal electrolytes, BUN 17, creatinine 0.82 PG Care Time/CCT Total # of Minutes Spent Total Time Spent with Patient: Total time spent is greater than 50% in coordination of care (as documented) at patient's floor/unit and/or counseling patient: Coding Level of Care Code 92938 SUB INP/OBS CARE 2/35MIN Diagnoses Acute non-ST elevation myocardial infarction (NSTEMI) I21.4 PAF (paroxysmal atrial fibrillation) I48.0 CAD (coronary artery disease) I25.10 Benign essential hypertension I10
--- NOTE | 2024-05-17 11:30 | Discharge Summary ---
Date of Service May 17, 2024 Admission HPI Per Admitting Provider Nirmal Waller is a pleasant 68-year-old male with history of hypertension, hyperlipidemia, paroxysmal atrial fibrillation (not on anticoagulation), polymyalgia rheumatica on chronic steroids (prednisone 15 mg p.o. daily) and known CAD with history of STEMI in January 2022 status post PCI with VALENTIN x 1 to the left circumflex/OM 2 and VALENTIN x 1 to the mid RCA (original catheterization report scanned into the records dated 01/27/2022). Patient had been taking aspirin every other day, no statin. Patient [facility]2024 with complaint of intermittent chest pain occurring throughout the day with radiation to bilateral arms into the jaw. His initial troponin was mildly elevated 40.4 and EKG with no acute ischemic changes. He was admitted to the hospital and p laced on a heparin drip. Patient's repeat troponin declined. He had an echocardiogram with no wall motion abnormalities and normal EF. He was ultimately discharged home later in the day on 05/13/2024 with presumed diagnosis of suspected reflux. Patient was instructed to increase his aspirin to 81 mg daily (rather than every other day) and he was encouraged to continue his daily omeprazole. Patient reports that when he returned home he overall felt well. He continued to have intermittent "twinges" of pain, but no significant or sustained chest pain. He did increase his aspirin to daily and continue taking his omeprazole. This evening around 1900 patient developed some substernal bandlike chest pain with radiation down both arms into his jaw. The pain initially lasted 10 to 15 minutes then resolved. Later in the evening he was laying down to watch TV and he began feeling very uneasy. He again developed substernal chest pain which continued to increase. The pain was bandlike across his chest with radiation down both arms and up his right jaw. Pain 10 out of 10 in nature with associated diaphoresis. He called 911. Per EMS patient's blood pressure markedly elevated 202/136. He was given 2 sprays of nitro with improvement in his blood pressure to 138/91 and improvement of his pain from tentative 10 to a 2 out of 10. He was given 4 baby aspirin prior to arrival. Patient presently with no chest pain. No additional complaints. Specifically denies shortness of breath, cough, dizziness, fever, chills, abdominal pain, nausea, vomiting, diarrhea In the ER patient afebrile, hemodynamically stable ER course: Half inch of Nitropaste Heparin drip initiated Admission Exam Per Admitting Provider General: patient resting comfortably, NAD, non-toxic in appearance, AA&O x 4 Skin: warm, dry, intact, no rashes or lesions HEENT: NC/AT, PERRL, EOMI, anicteric sclera, conjunctiva without injection, external ear normal to inspection and nontender, nares patent, moist mucus membranes, dentition intact, no oropharyngeal lesions, neck supple, trachea midline, no LAD, no thyromegaly, no JVD Heart: +S1/S2, regular, no m/r/g Lungs: equal air entry bilaterally, no rales/rhonchi/wheezes Abd: +BS, soft, NT/ND, no masses/organomegaly/ascites Ext: warm, 2+ pulses in UE/LE bilaterally, no clubbing/cyanosis or edema Neuro: nonfocal, patient AA&O x 4, speech intact, no facial droop, moving all extremities on command with equal strength 5/5 Principal Diagnosis NSTEMI Discharge Exam General: Pleasant, NAD, non-toxic, AA&O x 4 Skin: No rashes, lesions, or erythema. Post-op bandages intact. HEENT: NC/AT, no LAD, no JVD Heart: +S1/S2, regular, no m/r/g, no carotid bruit Lungs: CTAB, nonlabored, no wheezing/rhonchi/rales Abd: +BS, soft, NT/ND, no masses or HSM Ext: Distal pulses 2+, no peripheral edema Discharge Data Allergies Allergy/AdvReac Type Severity Reaction Status Date / Time No Known Allergies Allergy Verified 05/13/24 02:23 Consultations 05/16/24 00:13 ED Decision to Admit Stat 05/16/24 00:50 Consult Cardiology Routine Procedures Performed Operation Date: 05/16/24 11:30 Actual Procedures p Cath, Coronaries ONLY (no LV) - Fuad Thompson MD, PhD s Cineradiography w/Routine Exam - Fuad Thompson MD, PhD s Drug Eluting Stent SGl Vessel - Fuad Thompson MD, PhD Ordered Studies 05/15/24 22:31 CT angio abdomen pelvis w con Stat CT angio chest dissec wo/w con Stat 05/16/24 09:18 CL Cath Imgs for PACS use only Routine Hospital Course (1) Acute non-ST elevation myocardial infarction (NSTEMI): (2) CAD (coronary artery disease): (3) PAF (paroxysmal atrial fibrillation): (4) Benign essential hypertension: (5) Atherogenic dyslipidemia: (6) Polymyalgia rheumatica: (7) Moderate obstructive sleep apnea: Thang Kinney is a 68M w/ PMH Of CAD requiring stenting in 2021 (OM2/RCA), HTN, HLD, PMR on steroids, and pAF (not anticoagulated) who presented with severe chest discomfort for 1 hour and was admitted for ACS evaluation and treatment. He is now POD#1 S/p PCI w/ VALENTIN placement to the RCA. NSTEMI | ACS Hx of CAD, HTN, HLD - Hx of CAD w/ VALENTIN placement in 2021, now POD#1 for PCI w/ VALENTIN placement to the RCA - Troponin peak 1400s - Pre-procedure EKG w/ anterior T wave inversions - Patient remains asymptomatic - Patient hemodynamically stable on room air - Echo 05/13/24 w/o wall motion abnormalities, normal EF - 05/15: A1c 5.2/ Total Cholesterol 214, LDL 94, HDL 41 - Cardiology advised continuation of DAPT (aspirin/clopidogrel), metoprolol, and rosuvastatin Monitor BP as outpatient w/ PCP and Cardiology pAFib - Reporting low burden, no active anticoagulation - CHADsVASC 3 (age, HTN, CAD, no DM) - Anticoagulation recommended for stroke risk reduction - Patient historically/presently declining anticoagulation HTN - Now on Metoprolol - Monitor BP as outpatient Elevated Total Cholesterol - Total Cholesterol 214, LDL 94, HDL 41 Started on statin therapy inpatient Polymyalgia rheumatica Continue prednisone 50 mg p.o. daily RITA - Not on CPAP GERD - Switch Omeprazole to Pantoprazole due to interaction with Plavix Code: Full DVT Ppx: Heparin gtt FENGI: No IVF, NPO for procedure Dispo: DC Home, PCP f/u Sunday, Cardiology f/u Sunday Total Time Total Time Spent Total Time Spent (In Minutes): Attending time 36 minutes, Lillian Vazquez DO Discharge Plan Discharge Items Patient Disposition: Home - Self-Care Reason For Visit: NSTEMI Discharge Diagnosis: NSTEMI CAD status post PCI Hypertension Dyslipidemia Paroxysmal atrial fibrillation Activity: Per Instructions section Non-emergency contact: Primary Care Provider and Central Control Room Operator Call non-emergency contact if: you have any medication questions, your symptoms worsen, your pain is not controlled, you have a fever, your wound has increased drainage and your wound pain has increased Follow-up/Referrals: Ham Hernandez DO [Primary Care Provider] - Diet: Carb Consistent or DM2 and Heart Healthy Addtl Attending Provider Instructions: ACTIVITY RECOMMENDATIONS: It is common to feel weak and fatigue for a few days. * Do not drive or operate any motorized equipment for the next three days. * Limit stair usage (2 or 3 trips a day only) for the next three days. * Do not lift anything heavier than 10 pounds for the next three days. * Do not engage in vigorous exercise or any sports for the next five days. * You may shower the day after your procedure, but do not immerse the area for three days. Cleanse the site gently with soap and water. SPECIAL CARE INSTRUCTIONS: * You may replace the pressure dressing or band-aid the morning after the procedure. * After your procedure, it is normal to have a small bruise or small lump at the site. Examine your site daily for any change in the bruise or lump, redness, swelling, drainage or numbness. Notify your doctor if any change. BLEEDING: * If there is a small amount of bleeding at the site, lie down and apply firm pressure with a clean cloth for ten minutes. When the bleeding stops, lie quietly keeping the procedure limb straight for six hours. Notify your doctor as soon as possible. * If the bleeding does not stop after ten minutes or if there is a large amount of bleeding or spurting, call 911 immediately. Continue to lie down and hold firm pressure until help arrives. SKIN IRRITATION: * You may experience some redness and/or swelling in the area where radiation was administered. If any skin irritation occurs, please contact your family physician. FOLLOW UP VISIT: Keep any scheduled doctor appointments. Addtl Osteopathic Resident Provider Instructions: Nirmal, You were admitted to the hospital for an NSTEMI (heart attack) which required intervention (catheterization) in order to open up the blood vessels and restore optimal blood flow to your heart. A drug-eluting stent was placed in your RCA during the procedure. In the hospital you were started on aspirin, plavix, metoprolol, and rosuvastatin. It is recommended to continue this medication upon discharge, they will be sent to your pharmacy. Please follow up with your PCP on Sunday and Central Control Room Operator on Sunday for ongoing outpatient management of your symptoms. If you have return of chest pain or shortness of breath, please return to the emergency department for further management. Of note, please switch from Omeprazole to Pantoprazole (Rx sent to pharmacy) for the management of reflux as Omeprazole interacts with Plavix. Pantoprazole is the preferred PPI when taking Plavix. It was a pleasure to be a part of your inpatient care, Dr. Dawson Soriano [facility] Pending Studies at Discharge: No Stand-Alone Forms: My [facility] [employer], Smoking Cessation Medications and DC Order Prescriptions: New clopidogrel 75 mg Tablet 75 mg PO QAM 30 Days Qty: 30 0RF rosuvastatin 20 mg Tablet 20 mg PO QAM 30 Days Qty: 30 0RF metoprolol tartrate 25 mg Tablet 25 mg PO BID 30 Days Qty: 60 0RF pantoprazole 40 mg Tablet,Delayed Release (Dr/Ec) 40 mg PO DAILY 30 Days Qty: 30 0RF Continued acetaminophen [Tylenol Extra Strength] 500 mg Tablet 500 mg PO Q6H PRN (Reason: Pain) prednisone 5 mg tablet 15 mg PO DAILY Zepbound 15 mg/0.5 mL pen injector 15 mg subcut WK Rx Instructions: TUESDAYS aspirin [Adult Low Dose Aspirin] 81 mg tablet,delayed release (DR/EC) 81 mg PO DAILY Qty: 0 0RF Rx Instructions: PER PT "WHEN I NEED IT". Discontinued ibuprofen [Advil] 200 mg tablet 200 mg PO Q6H PRN (Reason: Pain) aspirin 325 mg Tablet 325 mg PO DIRECTED PRN (Reason: Pain) omeprazole 40 mg capsule,delayed release(DR/EC) 40 mg PO DAILY Qty: 0 0RF Rx Instructions: take 30 minutes prior to food once a day while on Prednisone Discharge Orders: Discharge Order (Routine); Ordered 05/17/24 Ordered By: Dawson Soriano Admission Data Admit Date/Time: 05/16/24 00:50 Attending Provider: Lillian Vazquez Admit Provider: Tila Franklin Primary Care Provider: Ham Hernandez Other Providers: Hugo Zambrano Jr; Tila Franklin Other Interventions: Discharge Summary Assessment (RN) Last Done: 05/17/24 11:45 Supervising Physician Co-Signing Physician Notes I personally examined the patient and verified merchant points of history and exam, discussed case, and agree with decision making and plan documented by Dr. Soriano. Patient s/p VALENTIN to RCA yesterday. Continue aspirin, clopidogrel, rosuvastatin, and metoprolol. Encourage continued efforts to maintain healthy approach to nutrition as well as active approach to exercise. Patient will follow-up with PCP and cardiology.
[2024-05-17 11:46] VITALS: BP 117/71; PULSE 93
[2024-05-18] MEDS ORDERED: CLOPIDOGREL BISULFATE 75 MG TAB PO SCH (09:00)
== END 2024-05-17 12:57 | disposition home or self-care (01) | DRG 322 ==
LOC: ED 21:25 → SUATTDRO 05-16 00:50 → 2S 05-16 00:50
PROC: CLB.CCO (2024-05-16 11:30)